=== PATIENT | male | born 1945 | race Caucasian/White ===

== ENCOUNTER → 2016-10-07 | Outpatient (CLI) | payer MEDICARE | END | disposition home or self-care (01) | LOC: LABPAT 15:20 | PROVIDERS: ATTEND Surgery | DX: Z01.818 Encounter for other preprocedural examination (principal) | CPT/HCPCS: 84132; 86850; 86900; 86901 ==

== ENCOUNTER 2016-10-08 07:58 | Day surgery (SDC) | payer BC, MEDICARE ==
[2016-10-07 08:28] VITALS: BMI 30.7
[~2016-10-08 07:58] MED LIST: HEPARIN SODIUM,PORCINE 5,000 UNIT/ML 1 ML VIAL SQ ONE; LACTATED RINGERS 1,000 ML IV SCH; LIDOCAINE 1% 20 ML VIAL (10MG/ML) FOR IV START INTRADERMA PRN; ONDANSETRON 4 MG/2 ML VIAL IVP ONE; ceFAZolin 2 GM in SODIUM CHLORIDE 0.9% 100 ML IVPB ONE
[2016-10-08] MEDS ORDERED: HYDROmorphone (PF) 1 MG/ML ONE (10:01)
[2016-10-08] MEDS ORDERED: ROCURONIUM BROMIDE 10 MG/ML 10 ML VIAL IV ONE (10:01)
[2016-10-08] MEDS ORDERED: fentaNYL (PF) 50 MCG/ML 2 ML AMP ONE (10:01)
[2016-10-08] MEDS ORDERED: DEXAMETHASONE SOD PHOS (MDV) 100 MG/10 ML VIAL ONE (10:01)
[2016-10-08] MEDS ORDERED: PROPOFOL 10 MG/ML 20 ML VIAL IV ONE (10:01)
[2016-10-08] MEDS ORDERED: GLYCOPYRROLATE 0.2 MG/ML 2 ML VIAL ONE (10:01)
[2016-10-08] MEDS ORDERED: NEOSTIGMINE 1 MG/ML 10 ML VIAL ONE (10:01)
[2016-10-08] MEDS ORDERED: SUCCINYLCHOLINE CHLORIDE 100 MG/5 ML SYR IV ONE (10:01)
[2016-10-08] MEDS ORDERED: MIDAZOLAM 2 MG/2 ML VIAL ONE (10:01)
[2016-10-08] MEDS ORDERED: LACTATED RINGERS 1,000 ML IV ONE (10:35)
[2016-10-08] MEDS ORDERED: BUPIVACAIN-EPI 0.25%-1:200,000 30 ML VIAL SQ ONE (10:44)
--- NOTE | 2016-10-08 12:23 | P.OP ---
Date of Procedure: 10/08/16 Preoperative Diagnosis: Incisional ventral hernia H/O prostate cancer s/p robotic prostatectomy Postoperative Diagnosis: Same Procedure(s) Performed: Robotic assist lap ventral incisional hernia repair with mesh possible open Implants: BARD Ventralight ST 11.4 cm circular mesh Anesthesia: DEEPTIA Surgeon: Radha Doran Estimated Blood Loss (ml): 10 IV fluids (ml): 1,400 Pathology: none sent Condition: other (ASA 3) Disposition: PACU Indications for Procedure: 70 years old male presents with an incisional hernia at prior surgical site. He status post robotic prostatectomy for prostate cancer 3 years ago. Informed consent obtained and patient elected to undergo robotic-assisted laparoscopic ventral hernia repair with mesh possible open. Patient had some discomfort in the left and right lower quadrants. However on clinical examination and laparoscopic exam no inguinal hernias noted Operative Findings: Vietnamese cheeselike defects along the prior incision site in the midline Description of Procedure: The patient was brought to the operating room and placed in supine position. General anesthesia with endotracheal intubation was performed as per anesthesia team. The right arm was tucked against the body and a footboard was applied. Chlorhexidine was used to prep the skin followed by application of sterile drapes and Ioban dressing. A timeout was performed to verify correct patient and correct procedure. Patient was confirmed to receive perioperative IV antibiotics , bilateral SCDs and 5000 units of subcutaneous heparin for VTE prophylaxis. A 5 mm skin incision was made along the left midaxillary line and a Veress needle was inserted to establish the pneumoperitoneum to a pressure of 15 mm of Hg. Using a 5 mm 30 laparoscope the peritoneal cavity was entered using the Optiview technique. Additional 12 mm trocar was placed in the mid axillary line in the left mid abdomen and robotic 8 mm trocar in the left lower abdomen. The 5 mm trocar was upsized to 8 mm robotic trocar. The abdominal cavity was inspected. No inguinal hernias. The [employer] Devon robot was then docked. The 30 robotic camera was used. A robotic prograsp and monopolar scissors were inserted through 8 mm robotic trocars The hernia defect contained preperitoneal fat and omentum which were reduced using gentle traction and countertraction method. The falciform ligament was divided using monopolar scissors close to the anterior abdominal wall to create a landing zone for the mesh. There were multiple hernia defects ( sammarinese chese type defect ) . The hernia defect was closed primarily with running sutures using O- V lock by taking 1 cm bite on the fascia on either side of the defect. A 11.[address] mesh was tagged in the center using a prolene stitich and was rolled and introduced to the abdominal cavity via the 12 mm trocar. A Delroy Shravan device was inserted through the middle of the hernia defect and the stay suture on the mesh was grasped to elevate the mesh against the anterior abdominal wall. The mesh was circumferentially sutured to the peritoneum of the anterior abdominal wall using 2-0 V lock without any folds or kinks. The robot was then undocked. Laparoscopic 30 degrees camera was reinserted. All trocar sites were examined. No evidence of bleeding. The 12 mm trocar site was closed using two transfascial sutures of 0 Vicryl which were placed using a Delroy Shravan device. All needles removed. The pneumoperitoneum was evacuated and all the skin incisions were closed using 4-0 Monocryl followed by Dermabond skin glue. Telfa and Tegaderm dressings were applied. The sponge, instrument and needle count were correct x2. Abdominal binder was applied. The patient was extubated and taken to post anesthesia care unit in stable condition.
[2016-10-08 12:29] VITALS: TEMP 97.4
[2016-10-08] MEDS: HYDROmorphone 1 MG/ML 1 ML SYRINGE IVP PRN ×2 (12:45→12:53)
[2016-10-08] MEDS: MEPERIDINE 50 MG/ML SYRINGE IVP ONE ×2 (13:06→13:19)
[2016-10-08] MEDS ORDERED: HYDROcodone/APAP 5-325MG 1 EACH TAB PO ONE (13:47)
[2016-10-08 14:12] VITALS: RESP 18
[2016-10-08 14:59] VITALS: BP 132/77; PULSE 65
== END 2016-10-08 16:12 | disposition home or self-care (01) ==
LOC: OR 07:58
PROVIDERS: ATTEND Surgery
DX: K43.2 Incisional hernia without obstruction or gangrene (principal); Z85.46 Personal history of malignant neoplasm of prostate; Z90.79 Acquired absence of other genital organ(s); I10 Essential (primary) hypertension; E78.5 Hyperlipidemia, unspecified; J45.909 Unspecified asthma, uncomplicated; G47.33 Obstructive sleep apnea (adult) (pediatric); Z88.8 Allergy status to other drugs, medicaments and biological substances; Z79.82 Long term (current) use of aspirin; Z79.899 Other long term (current) drug therapy
CPT/HCPCS: 49654; C1781; J2250; J1644; J2710; J2175; J0690; J2405; J3010; J1170; J1100; J0330; J2704; 86850; 86900; 86901

== ENCOUNTER → 2017-09-08 | Outpatient (CLI) | payer MEDICARE, BC ==
--- NOTE | 2017-09-08 18:00 | CONS ---
CONSULTATION DATE OF SERVICE: 09/08/2018 71-year-old gentleman who has been re-evaluated in [facility] for obstructive sleep apnea-hypopnea syndrome. HISTORY OF PRESENT ILLNESS/SLEEP WAKE EVALUATION: Patient has a history of obstructive sleep apnea-hypopnea syndrome for about 8 years. Last titration done in 2014. Since that time, patient is on treatment with BiPAP with a pressure of 14/10 cm of water. The patient is using his BiPAP equipment every night but several months ago his BiPAP equipment stopped working and he was not able to use it since that time. SLEEP SCHEDULE: His usual sleep schedule from around 9 to 11 pm to 7 am. Without BiPAP. He has loud snoring, multiple awakenings from sleep and sleepiness during the day. [place] Sleepiness Scale today significantly increased to 21. PAST MEDICAL HISTORY: Positive for depression, hyperlipidemia, off the prostate CA, hay fever and knee problems. PAST SURGICAL HISTORY: Status post bilateral knee surgery, prostatectomy, umbilical hernia repair last year. MEDICATIONS: Singulair, hydrochlorothiazide, bupropion, Lipitor, aspirin. SOCIAL HISTORY: Positive for smoking in the past, quit 40 years ago. Alcohol consumption occasional. FAMILY HISTORY: Positive for significant heart problems. REVIEW OF SYSTEMS: Multiple awakenings from sleep with snoring, sleepiness during the day. PHYSICAL EXAM: A 71-year-old gentleman probably looks younger than his age without distress. BP 149/73, HR 74, RR 16, height 5 feet 10 inches, weight 226, BMI 32.4, temperature 98.0, oxygen saturation room air 96%. Oropharynx low position of soft palate. Abdomen slightly obese. Neck Supple, no JVD. Thyroid is not palpable. LUNGS Clear to percussion and to auscultation. Good air exchange. No wheezing or rhonchi. HEART S1, S2 regular. No murmurs, gallops, or rubs. ABDOMEN: Obese. Soft and nontender. Bowel sounds are present. No organomegaly appreciated. EXTREMITIES No clubbing or cyanosis. SCIENCE CENTER DISPLAY BUILDER Awake, alert, and oriented X3. Cranial nerves 2 to 7 intact. There is no fasciculation or atrophy. noted. No focal deficits observed. IMPRESSION: 1. Snoring, multiple awakenings from sleep, low position of soft palate, sleepiness. [place] Sleepiness Scale significantly is 21. History of obstructive sleep apnea- hypopnea syndrome for many years. Obstructive sleep apnea-hypopnea syndrome. The patient slept well on BiPAP with a pressure of 14/10. Presently has problem because his BiPAP unit does not work properly. 2. Hypertension. 3. Depression. 4. Hyperlipidemia. 5. Asthma. 6. History of prostate carcinoma status post surgical treatment. 7. Hayfever. 8. Status post bilateral knee surgery for meniscus problems. 9. Status post umbilical hernia treatment last year. 10.Status post nasal surgery. PLAN: 1. The patient should continue to use BiPAP equipment every night for the whole night. I reviewed results of previous sleep study and recommended BiPAP pressure of 14-10 cm of water. Prescription for all necessary BiPAP supplies, prescription to replace BiPAP unit. 2. Patient should use BiPAP equipment every night for the whole night. 3. Losing weight. 4. Sleep hygiene with regular time in bed for at least 8 hours. 5. No driving if feeling sleepiness. Thank you very much for allowing me to participate in the management of your patient. Sincerely, Bill Knight MD, PhD, FAASM Diplomat of [place] [employer] [place] [employer] Ink Blender of [facility] [place] MMODL / IJN: [id number] /
== END | disposition home or self-care (01) ==
LOC: SLEEP 14:58
PROVIDERS: ATTEND Internal Medicine
DX: G47.33 Obstructive sleep apnea (adult) (pediatric) (principal); M27.8 Other specified diseases of jaws; I10 Essential (primary) hypertension; F32.9 Major depressive disorder, single episode, unspecified; E78.5 Hyperlipidemia, unspecified; J45.909 Unspecified asthma, uncomplicated; Z85.46 Personal history of malignant neoplasm of prostate; Z98.890 Other specified postprocedural states; Z99.89 Dependence on other enabling machines and devices; Z79.82 Long term (current) use of aspirin; Z79.899 Other long term (current) drug therapy; Z87.891 Personal history of nicotine dependence

== ENCOUNTER → 2018-01-11 | Outpatient (CLI) | payer MEDICARE, BC ==
--- NOTE | 2018-01-11 16:02 | PN ---
PROGRESS NOTE DATE OF SERVICE: 01/11/2018 This patient is a 72-year-old gentleman who has been followed in the sleep center for treatment of obstructive sleep apnea-hypopnea syndrome. Recently the patient had a polysomnogram and CPAP titration. We discussed results of these sleep studies with the patient in detail. Diagnostic polysomnogram showed obstructive sleep apnea with apnea- hypopnea index 24.6, which was corrected with treatment on BiPAP. The patient received his new BiPAP unit, and today is his first visit with this after he started to use it. He is able to use it every night without any significant problems. I checked his BiPAP unit. BiPAP pressure is 14/10 cm of water, usage 29/30 nights for more than 4 hours. Average usage is 7.2 hours. There is a slightly high leak at 43 L/minute, but apnea-hypopnea index is 4, which is in normal range. [place] Sleepiness Scale today is 11. MEDICATIONS: 1. Singulair. 2. Hydrochlorothiazide. 3. Bupropion. 4. Lipitor. 5. Aspirin. PHYSICAL EXAMINATION: GENERAL A pleasant gentleman in no distress. VITAL SIGNS: BP 134/79, HR 64, RR 18, weight 230.3, temperature 97.6. HEENT: PERRLA, EOMI. Evaluation of oropharynx showed tongue protrudes midline; low position of soft palate. NECK: Supple. No JVD. Thyroid is not palpable. LUNGS: Clear to percussion and to auscultation. Good air exchange. No wheezing or rhonchi. HEART: S1, S2 regular. No murmurs, gallops or rubs. ABDOMEN: Slightly obese. EXTREMITIES : No clubbing or cyanosis. EDDY CURRENT INSPECTOR: Awake, alert, and oriented X3. Cranial nerves 2 to 7 intact. There is no fasciculation or atrophy. noted. No focal deficits observed. IMPRESSION: 1. Obstructive sleep apnea-hypopnea syndrome. The patient demonstrated practically 100% compliance with treatment, benefitting from treatment. 2. Hypertension. 3. History of depression. 4. Hyperlipidemia. 5. History of asthma. 6. Status post surgical treatment of prostate cancer. 7. History of hayfever. 8. Status post nasal surgery. 9. Status post bilateral knee surgery for meniscus problems. 10.Status post umbilical hernia about one year ago. PLAN: 1. Patient will continue to use BiPAP equipment every night for the whole night. 2. Losing weight. 3. Sleep hygiene with regular time in bed for at least 8 hours. 4. No driving if feeling any sleepiness. 5. We will maintain prescriptions for all necessary CPAP supplies, including mask, tube, filters. Thank you very much for allowing me to participate in the management of your patient. Follow-up visit in about 10 months, earlier if patient has any problems. Sincerely, Bill Knight MD, PhD, FAASM Diplomat of [place] [employer] [place] [employer] Search Marketing Specialist of [facility] [place] MMODL / IJN: [id number] /
== END | disposition home or self-care (01) ==
LOC: SLEEP 14:35
PROVIDERS: ATTEND Internal Medicine
DX: G47.33 Obstructive sleep apnea (adult) (pediatric) (principal); I10 Essential (primary) hypertension; F32.9 Major depressive disorder, single episode, unspecified; E78.5 Hyperlipidemia, unspecified; J45.909 Unspecified asthma, uncomplicated; Z98.890 Other specified postprocedural states; Z79.899 Other long term (current) drug therapy; Z79.82 Long term (current) use of aspirin

== ENCOUNTER → 2018-01-19 | Outpatient (CLI) | payer MEDICARE, BC ==
--- NOTE | 2018-01-19 17:50 | XR ---
EXAMINATION TYPE: XR chest 2V DATE OF EXAM: 01/19/2018 COMPARISON: 03/12/2013 HISTORY: 72 year-old male shortness of breath for 2 months, COPD TECHNIQUE: Frontal and lateral views FINDINGS: Heart normal size. Aorta within normal limits. Mild interstitial prominence. Strandy atelectasis left base. No consolidation or pleural effusion. IMPRESSION: Chronic changes, possible bronchitis/asthma. Strandy left basilar atelectasis. No acute process other carranza seen.
== END ==
LOC: RADXRMAIN 14:09
PROVIDERS: ATTEND Family Medicine
DX: J98.11 Atelectasis (principal)
CPT/HCPCS: 71046

== ENCOUNTER → 2018-01-23 | Outpatient (CLI) | payer MEDICARE ==
--- NOTE | 2018-01-23 18:39 | ECHOF ---
Referral Reason:K80.12 Calculus of gallbladder with acute and engagement liaison MEASUREMENTS -------- HEIGHT: 177.8 cm WEIGHT: 102.1 kg BP: 137/65 RVIDd: 2.9 cm (< 3.3) IVSd: 1.2 cm (0.6 - 1.1) LVIDd: 5.2 cm (3.9 - 5.3) LVPWd: 1.2 cm (0.6 - 1.1) IVSs: 1.7 cm LVIDs: 3.3 cm LVPWs: 1.5 cm LA Diam: 3.9 cm (2.7 - 3.8) LAESV Index (A-L): 24.79 ml/m Ao Diam: 3.2 cm (2.0 - 3.7) AV Cusp: 2.0 cm (1.5 - 2.6) EPSS: 0.6 cm MV E Rudi: 0.74 m/s MV DecT: 224 ms MV A Rudi: 0.89 m/s MV E/A Ratio: 0.83 RAP: 5.00 mmHg RVSP: 21.60 mmHg MV EF SLOPE: 78.84 mm/s (70 - 150) MV EXCURSION: 1.38 cm (> 18.000) FINDINGS -------- Sinus rhythm. This was a technically adequate study. The left ventricular size is normal. There is borderline concentric left ventricular hypertrophy. Overall left ventricular systolic function is normal with, an EF between 55 - 60 %. The right ventricle is normal in size. Normal LA size by volume 22+/-6 ml/m2. The right atrium is normal in size. The aortic valve is trileaflet and appears structurally normal. The mitral valve is normal. Mild mitral regurgitation is present. Mild tricuspid regurgitation present. Right ventricular systolic pressure is normal at < 35 mmHg. Trace/mild (physiologic) pulmonic regurgitation. The aortic root size is normal. Normal inferior vena cava with normal inspiratory collapse consistent with estimated right atrial pre ssure of 5 mmHg. There is no pericardial effusion. CONCLUSIONS -------- 1. Sinus rhythm. 2. This was a technically adequate study. 3. The left ventricular size is normal. 4. There is borderline concentric left ventricular hypertrophy. 5. Overall left ventricular systolic function is normal with, an EF between 55 - 60 %. 6. Normal LA size by volume 22+/-6 ml/m2. 7. The aortic valve is trileaflet and appears structurally normal. 8. Mild mitral regurgitation is present. 9. Mild tricuspid regurgitation present. 10. Right ventricular systolic pressure is normal at < 35 mmHg. 11. Trace/mild (physiologic) pulmonic regurgitation. 12. The aortic root size is normal. 13. Normal inferior vena cava with normal inspiratory collapse consistent with estimated right atrial pressure of 5 mmHg. 14. There is no pericardial effusion. CLINICAL RESEARCH MONITOR: REYES Rodriguez
== END | disposition home or self-care (01) ==
LOC: RADECHMAIN 12:56
PROVIDERS: ATTEND Family Medicine
DX: I08.1 Rheumatic disorders of both mitral and tricuspid valves (principal)
CPT/HCPCS: 93306

== ENCOUNTER → 2018-02-06 | Outpatient (CLI) | payer MEDICARE, BC ==
--- NOTE | 2018-02-06 18:48 | P.STRESS ---
- Stress Test Note Stress Test Results/Findings: Exam Performed: stress echo exercise Exam Date: 02/06/18 Reason for Exam: SOB Height: 5 ft 10 in Weight: 102.058 kg Protocol: 63 Stage: 119/50 Duration of Exercise: 6:30 Resting Heart Rate: 63 Resting Blood Pressure: 119/50 Maximum Achieved Heart Rate: 133 Maximum Achieved Blood Pressure: 210/68 85% PMHR: 127 100% PMHR: 149 METS: 7.9 Technologist Comment: Stress Test Results/Findings: Baseline heart rate 63 beats a minute, Baseline blood pressure 119/50 mmHg the center ECG shows sinus rhythm normal VT and an incomplete right bundle branch block pattern normal ST segments Patient excisable Rex protocol for 6 minutes 30 seconds regimen will be currently 133 beats a minute he was extremely short of breath during exercise. He blood pressure 210/68 mmHg No ECG is for ischemia no arrhythmias Recent 2-D echo images showed normal LV systolic function rate at peak exercise there was excellent augmentation of oral LV contractility without development of any wall motion normalities At recovery regional global LV systolic function within normal Impression ALLERGY excess capacity with significant shortness of breath with exertion/ exercise No ECG or echocardiographic evidence for ischemia at this workload level
--- NOTE | 2018-02-08 09:57 | ECHOS ---
Stress Test Results/Findings: Exam Performed: stress echo exercise Exam Date: 02/06/18 Reason for Exam: SOB Height: 5 ft 10 in Weight: 102.058 kg Protocol: 63 Stage: 119/50 Duration of Exercise: 6:30 Resting Heart Rate: 63 Resting Blood Pressure: 119/50 Maximum Achieved Heart Rate: 133 Maximum Achieved Blood Pressure: 210/68 85% PMHR: 127 100% PMHR: 149 METS: 7.9 Technologist Comment: Stress Test Results/Findings: Baseline heart rate 63 beats a minute, Baseline blood pressure 119/50 mmHg the center ECG shows sinus rhythm normal UT and an incomplete right bundle branch block pattern normal ST segments Patient excisable Rex protocol for 6 minutes 30 seconds regimen will be currently 133 beats a minute he was extremely short of breath during exercise. He blood pressure 210/68 mmHg No ECG is for ischemia no arrhythmias Recent 2-D echo images showed normal LV systolic function rate at peak exercise there was excellent augmentation of oral LV contractility without development of any wall motion normalities At recovery regional global LV systolic function within normal Impression ALLERGY excess capacity with significant shortness of breath with exertion/ exercise No ECG or echocardiographic evidence for ischemia at this workload level MTDD
== END | disposition home or self-care (01) ==
LOC: RADNMMAIN 08:51
PROVIDERS: ATTEND Family Medicine
DX: R06.02 Shortness of breath (principal); I10 Essential (primary) hypertension
CPT/HCPCS: 93351

== ENCOUNTER 2019-01-24 11:35 | Inpatient (IN) | payer BC, MEDICARE ==
[2019-01-24] MEDS ORDERED: SODIUM CHLORIDE 0.9% 500 ML 500 ML IV STA (12:03)
[2019-01-24] MEDS ORDERED: ASPIRIN 81 MG PO STA (12:03)
[2019-01-24] MEDS ORDERED: NITROGLYCERIN OINT 1 INCH/GM PACKET TOPICAL STA (12:03)
--- NOTE | 2019-01-24 12:14 | ED ---
General Adult HPI - General Chief complaint: Syncope Stated complaint: Abnormal EKG, Fall Time Seen by Provider: 01/24/19 11:40 Source: patient, RN notes reviewed Mode of arrival: ambulatory Limitations: no limitations - History of Present Illness Initial comments: This is a 73-year-old male with no significant past medical history. Patient states he's been moving for the last couple of weeks and has been experiencing some right upper arm pain. Patient states she believed it was muscular in nature because it was constant and hurt to palpate in her to use. Patient states yesterday however he was taking her potassium exerting himself a little and he started becoming extremely short of breath had chest pain and right jaw pain. Patient states those symptoms lasted about half an hour. Patient states currently he still having some jaw pain and is experiencing some chest pain. Patient went to his primary medical care doctor's office today to Dr. Dr. Lebron about his symptoms and in the office while sitting on the bed he passed out and fell to the floor. Patient states he has a little tenderness over the left clavicle. Patient did not hit his head he denies any neck pain patient denies any headache. Patient denies numbness weakness. Patient denies any palpitations. Patient denies any history of similar. Patient states in the past he has had clean catheterizations. - Related Data Home Medications Medication Instructions Recorded Confirmed Atorvastatin Calcium [Lipitor] 20 mg PO DAILY 03/17/16 01/24/19 Hydrochlorothiazide 25 mg PO DAILY 03/17/16 01/24/19 Montelukast Sodium [Singulair] 10 mg PO DAILY 03/17/16 01/24/19 buPROPion HCL [Bupropion HCl Sr] 300 mg PO DAILY 03/17/16 01/24/19 Allergies Allergy/AdvReac Type Severity Reaction Status Date / Time fluticasone AdvReac Rash/Hives Verified 01/24/19 11:55 [From Advair Diskus] salmeterol AdvReac Rash/Hives Verified 01/24/19 11:55 [From Advair Diskus] Review of Systems ROS Statement: Those systems with pertinent positive or pertinent negative responses have been documented in the HPI. ROS Other: All systems not noted in ROS Statement are negative. Past Medical History Past Medical History: Asthma, Cancer, Hyperlipidemia, Hypertension, Skin Disorder, Sleep Apnea/CPAP/BIPAP Additional Past Medical History / Comment(s): PROSTATE CA, hx skin cancer, History of Any Multi-Drug Resistant Organisms: None Reported Past Surgical History: Heart Catheterization, Orthopedic Surgery, Prostate Surgery Additional Past Surgical History / Comment(s): RT TENNIS ELBOW SX, sinus surgery , isidra knee arthroscopy, Past Anesthesia/Blood Transfusion Reactions: Postoperative Nausea & Vomiting (PONV) Past Psychological History: Depression Smoking Status: Former smoker Past Alcohol Use History: Occasional Past Drug Use History: None Reported - Past Family History Brother(s) Family Medical History: Cancer Mother Family Medical History: Cancer General Exam - General Exam Comments Initial Comments: GENERAL: Patient is well-developed and well-nourished. Patient is nontoxic and well- hydrated and is in mild distress. ENT: Neck is soft and supple. No significant lymphadenopathy is noted. Oropharynx is clear. Moist mucous membranes. Neck has full range of motion without eliciting any pain. EYES: The sclera were anicteric and conjunctiva were pink and moist. Extraocular movements were intact and pupils were equal round and reactive to light. Eyelids were unremarkable. PULMONARY: Unlabored respirations. Good breath sounds bilaterally. No audible rales rhonchi or wheezing was noted. CARDIOVASCULAR: There is a regular rate and rhythm without any murmurs gallops or rubs. ABDOMEN: Soft and nontender with normal bowel sounds. SKIN: Skin is clear with no lesions or rashes and otherwise unremarkable. NEUROLOGIC: Patient is alert and oriented x3. Cranial nerves II through XII are grossly intact. Motor and sensory are also intact. Normal speech, volume and content. Symmetrical smile. MUSCULOSKELETAL: Normal extremities with adequate strength and full range of motion. No lower extremity swelling or edema. No calf tenderness. Patient LYMPHATICS: No significant lymphadenopathy is noted PSYCHIATRIC: Normal psychiatric evaluation. Limitations: no limitations Course Vital Signs 01/24/19 11:39 Temperature 97.5 F L Pulse Rate 53 L Respiratory 18 Rate Blood Pressure 147/87 O2 Sat by Pulse 98 Oximetry Medical Decision Making - Medical Decision Making EKG shows sinus bradycardia 57 bpm MO interval 260 QRS is 90 QT interval 420 QTC is 408. Patient's EKG shows no ST segment elevation or depression or T wave abnormalities are noted. Patient's chest x-ray shows no acute abnormality. I started the patient on heparin because of his unstable angina picture. I spoke with Dr. Bernardino Lebron agreed to admit the patient admitted the patient remaining orders I continued heparin and aspirin and Nitropaste on the floor. Patient's chest pain continues a repeat EKG. EKG shows sinus bradycardia 56 bpm MO interval 180 QRS is 98 QT interval is 4:30 QTC is 414 per patient's EKG shows no ST segment elevation or depression or T wave abnormalities are noted. - Lab Data Result diagrams: 01/24/19 12:15 01/24/19 12:15 Lab Results 01/24/19 01/24/19 01/24/19 Range/Units 12:15 12:15 12:15 WBC 5.4 (3.8-10.6) k/uL RBC 4.71 (4.30-5.90) m/uL Hgb 14.7 (13.0-17.5) gm/dL Hct 45.4 (39.0-53.0) % MCV 96.3 (80.0-100.0) fL MCH 31.3 (25.0-35.0) pg MCHC 32.5 (31.0-37.0) g/dL RDW 12.2 (11.5-15.5) % Plt Count 262 (150-450) k/uL Neutrophils % 64 % Lymphocytes % 21 % Monocytes % 6 % Eosinophils % 5 % Basophils % 1 % Neutrophils # 3.5 (1.3-7.7) k/uL Lymphocytes # 1.1 (1.0-4.8) k/uL Monocytes # 0.3 (0-1.0) k/uL Eosinophils # 0.3 (0-0.7) k/uL Basophils # 0.1 (0-0.2) k/uL PT 9.6 (9.0-12.0) sec INR 0.9 (<1.2) APTT 22.0 (22.0-30.0) sec D-Dimer 0.43 (<0.60) mg/L FEU Sodium 140 (137-145) mmol/L Potassium 4.2 (3.5-5.1) mmol/L Chloride 105 (98-107) mmol/L Carbon Dioxide 24 (22-30) mmol/L Anion Gap 11 mmol/L BUN 17 (9-20) mg/dL Creatinine 1.10 (0.66-1.25) mg/dL Est GFR (CKD-EPI)AfAm 77 (>60 ml/min/1.73 sqM) Est GFR (CKD-EPI)NonAf 67 (>60 ml/min/1.73 sqM) Glucose 92 (74-99) mg/dL Calcium 9.7 (8.4-10.2) mg/dL Magnesium 2.2 (1.6-2.3) mg/dL Total Bilirubin 0.6 (0.2-1.3) mg/dL AST 23 (17-59) U/L ALT 24 (21-72) U/L Alkaline Phosphatase 73 (38-126) U/L Troponin I (0.000-0.034) ng/mL NT-Pro-B Natriuret Pep pg/mL Total Protein 6.8 (6.3-8.2) g/dL Albumin 4.2 (3.5-5.0) g/dL 01/24/19 01/24/19 Range/Units 12:15 12:15 WBC (3.8-10.6) k/uL RBC (4.30-5.90) m/uL Hgb (13.0-17.5) gm/dL Hct (39.0-53.0) % MCV (80.0-100.0) fL MCH (25.0-35.0) pg MCHC (31.0-37.0) g/dL RDW (11.5-15.5) % Plt Count (150-450) k/uL Neutrophils % % Lymphocytes % % Monocytes % % Eosinophils % % Basophils % % Neutrophils # (1.3-7.7) k/uL Lymphocytes # (1.0-4.8) k/uL Monocytes # (0-1.0) k/uL Eosinophils # (0-0.7) k/uL Basophils # (0-0.2) k/uL PT (9.0-12.0) sec INR (<1.2) APTT (22.0-30.0) sec D-Dimer (<0.60) mg/L FEU Sodium (137-145) mmol/L Potassium (3.5-5.1) mmol/L Chloride (98-107) mmol/L Carbon Dioxide (22-30) mmol/L Anion Gap mmol/L BUN (9-20) mg/dL Creatinine (0.66-1.25) mg/dL Est GFR (CKD-EPI)AfAm (>60 ml/min/1.73 sqM) Est GFR (CKD-EPI)NonAf (>60 ml/min/1.73 sqM) Glucose (74-99) mg/dL Calcium (8.4-10.2) mg/dL Magnesium (1.6-2.3) mg/dL Total Bilirubin (0.2-1.3) mg/dL AST (17-59) U/L ALT (21-72) U/L Alkaline Phosphatase (38-126) U/L Troponin I 0.020 (0.000-0.034) ng/mL NT-Pro-B Natriuret Pep 121 pg/mL Total Protein (6.3-8.2) g/dL Albumin (3.5-5.0) g/dL Critical Care Time Critical Care Time: Yes Total Critical Care Time: 35 Disposition Clinical Impression: Unstable angina Disposition: ADMITTED IP TO THIS HOSP Referrals: Troy Lebron MD [Primary Care Provider] - 1-2 days Time of Disposition: 13:25
[2019-01-24 12:33] LABS: Basophils # (A) 0.1 k/uL (0-0.2); Basophils % (A) 1 %; Eosinophils # (A) 0.3 k/uL (0-0.7); Eosinophils % (A) 5 %; HCT 45.4 % (39.0-53.0); HGB 14.7 gm/dL (13.0-17.5); Lymphocytes # (A) 1.1 k/uL (1.0-4.8); Lymphocytes % (A) 21 %; MCH 31.3 pg (25.0-35.0); MCHC 32.5 g/dL (31.0-37.0); MCV 96.3 fL (80.0-100.0); Mean Platelet Volume 7.1; Monocytes # (A) 0.3 k/uL (0-1.0); Monocytes % (A) 6 %; Neutrophils # (A) 3.5 k/uL (1.3-7.7); Neutrophils % (A) 64 %; Platelet Count 262 k/uL (150-450); RBC 4.71 m/uL (4.30-5.90); RDW 12.2 % (11.5-15.5); WBC 5.4 k/uL (3.8-10.6)
--- NOTE | 2019-01-24 12:39 | XR ---
EXAMINATION TYPE: XR chest 2V DATE OF EXAM: 01/24/2019 COMPARISON: 01/19/2018 HISTORY: Shortness of breath TECHNIQUE: Frontal and lateral views of the chest are obtained. FINDINGS: Scattered senescent parenchymal changes noted. Hyperinflation compatible with COPD. No evidence for infiltrate. No evidence for atelectasis. Heart size is stable. Mediastinal structures are stable and grossly unremarkable. No evidence for hilar prominence. Degenerative changes dorsal spine. IMPRESSION: 1. No evidence for acute pulmonary disease.
[2019-01-24 12:45] LABS: Albumin 4.2 g/dL (3.5-5.0); Calcium 9.7 mg/dL (8.4-10.2); Magnesium 2.2 mg/dL (1.6-2.3); Potassium 4.2 mmol/L (3.5-5.1); Total Bilirubin 0.6 mg/dL (0.2-1.3); Total Protein 6.8 g/dL (6.3-8.2)
[2019-01-24 13:17] LABS: D-Dimer 0.43 mg/L FEU (<0.60); INR 0.9 (<1.2); Prothrombin Time 9.6 sec (9.0-12.0)
[2019-01-24] MEDS ORDERED: HEPARIN SODIUM,PORCINE 5,000 UNIT/ML 1 ML VIAL IV ONE ×2 (13:22→22:15)
[2019-01-24] MEDS ORDERED: NITROGLYCERIN SL TABS 0.4 MG TAB SUBLINGUAL PRN (13:26)
[2019-01-24] MEDS ORDERED: HEPARIN SOD,PORK IN 0.45% NACL 25,000 UNIT in 0.45% NACL 1 250ML.BAG IV SCH (13:30)
[2019-01-24] MEDS ORDERED: SODIUM CHLORIDE 0.9% 500 ML 500 ML IV SCH (13:45)
[2019-01-24] MEDS ORDERED: INFLUENZA VACCINE (6 MOS+) 60 MCG/0.5 ML SYRINGE IM ONE (14:43)
[2019-01-24] MEDS: NITROGLYCERIN OINT 1 INCH/GM PACKET TOPICAL SCH (21:01)
[2019-01-25] MEDS: NITROGLYCERIN OINT 1 INCH/GM PACKET TOPICAL SCH ×4 (01:23→18:33)
[2019-01-25 06:37] LABS: Cholesterol 153 mg/dL (<200); HDL Cholesterol 47 mg/dL (40-60); LDL Cholesterol,Calculated 92 mg/dL (0-99); Triglycerides 71 mg/dL (<150)
[2019-01-25] MEDS ORDERED: ALPRAZolam 0.5 MG TAB PO PRN (08:13)
[2019-01-25] MEDS ORDERED: ALPRAZolam 0.25 MG TAB PO PRN (08:13)
[2019-01-25] MEDS ORDERED: SODIUM CHLORIDE 0.9% 1,000 ML in EMPTY BAG 1 BAG IV ONE (08:13)
[2019-01-25] MEDS ORDERED: ATORVASTATIN 20 MG TAB PO SCH (09:00)
[2019-01-25] MEDS: HYDROCHLOROTHIAZIDE 25 MG TAB PO SCH (09:09)
[2019-01-25] MEDS: buPROPion SR 150 MG TABLET.ER PO SCH (09:09)
[2019-01-25] MEDS: MONTELUKAST 10 MG TAB PO SCH (09:09)
[2019-01-25] MEDS: ASPIRIN 325 MG TAB PO SCH (09:10)
--- NOTE | 2019-01-25 10:53 | P.CRDCN ---
History of Present Illness History of present illness: This is a pleasant 73-year-old male past medical history significant for dyslipidemia, hypertension and asthma. He denies prior history of coronary artery disease. He states he underwent a cardiac catheterization in the 80s that was unremarkable and showed no significant coronary artery disease. We have been asked to see him in consultation secondary to chest discomfort. He states for approximately the previous 2 weeks he has noticed an achy sensation in his left shoulder that sometimes radiated to the upper left arm. These symptoms were not necessarily exacerbated by activity but didn't intensify with activity. He states he is in the process of moving and he has been doing a lot of lifting and associated his discomfort to that. However a couple of nights ago he was taking his garbage out to the curb when he became acutely short of breath. He states this is abnormal for him to be short of breath and he felt as though he had just climbed 3 flights of stairs. He then started noticing the following day some discomfort in the left precordial region that radiated up into the jaw on both sides. The chest discomfort was exacerbated by activity or exertion prompting him to see his primary care physician for evaluation. His primary care physician took an EKG and gave him a sublingual nitroglycerin. They left the patient in the room and when he came back and he passed out. The patient does not recall these events he states he remembers taking the nitrog lycerin sitting on the bed next he knows he was on the floor. His seen and examined resting comfortably in bed in no acute distress. He denies active chest discomfort at this time. EKG on arrival reveals sinus bradycardia heart rate of 57, left axis deviation and nonspecific ST abnormalities. Chest x-ray is negative for an acute cardiopulmonary process. Laboratory data reviewed, CBC unremarkable, d-dimer 0.43, sodium 140, potassium 4.2, creatinine 1.01 with a GFR 67, magnesium 2.2, cardiac enzymes 0.020, 0.051 and 0.063, proBNP 121, LDL 92. Current daily cardiac medications include atorvastatin 20 mg daily and hydrochlorothiazide 25 mg daily. Most recent echocardiogram obtained January 2018 reveals preserved LV systolic function with ejection fraction 55-60%, mild MR and mild TR. Most recent stress test performed in January 2018 was negative for stress-induced ischemia. At the time of my exam: CONSTITUTIONAL: Denies fever. Denies chills. EYES: Denies blurred vision. Denies vision changes. Denies eye pain. EARS, NOSE, MOUTH & THROAT: Denies headache. Denies sore throat. Denies ear pain. CARDIOVASCULAR: Denies chest pain. Denies shortness of breath. Denies orthopnea. Denies PND. Denies palpitations. RESPIRATORY: Denies cough. GASTROINTESTINAL: Denies abdominal pain. Denies diarrhea. Denies constipation. Denies nausea. Denies vomiting. MUSCULOSKELETAL: Denies myalgias. INTEGUMENTARY: Denies pruitis. Denies rash. NEUROLOGIC: Denies numbness. Denies tingling. Denies weakness. PSYCHIATRIC: Denies anxiety. Denies depression. ENDOCRINE: Denies fatigue. Denies weight change. Denies polydipsia. Denies polyurina. GENITOURINARY: Denies burning, hematuria or urgency with micturation. HEMATOLOGIC: Denies history of anemia. Denies bleeding. Blood pressure 111/68 heart rate 58 afebrile maintaining oxygen saturation on room air GENERAL: This is a 73-year-old male in no apparent distress at the time of my examination. HEENT: Head is atraumatic, normocephalic. Pupils are equal, round. Sclerae anicteric. Conjunctivae are clear. Mucous membranes of the mouth are moist. Neck is supple. There is no jugular venous distention. No carotid bruit is heard. LUNGS: Clear to auscultation no wheezes, rales or rhonchi. No chest wall tenderness is noted on palpation or with deep breathing. HEART: Regular rate and rhythm without murmurs, rubs or gallops. S1 and S2 heard. ABDOMEN: Soft, nontender. Bowel sounds are heard. No organomegaly noted. EXTREMITIES: No evidence of peripheral edema and no calf tenderness noted. VASCULAR: Radial and dorsalis pedis pulses palpated, no evidence of clubbing. NEUROLOGIC: Patient is awake, alert and oriented x3. ASSESSMENT Non-ST elevated myocardial infarction Unstable angina Hypertension Dyslipidemia Former nicotine dependence, quit in 1974 PLAN Recommend proceeding with cardiac catheterization. I have discussed the risks, benefits and alternative therapies for the above-mentioned procedure and for both sedation/analgesia as well as necessary blood product administration, if indicated, as they pertain to this patient. The patient has indicated understanding and acceptance of the risks and procedures discussed. Questions have been answered appropriately and he is agreeable to move forward with the above stated procedure. Obtain 2-D echocardiogram and Doppler study to assess cardiac structure and function. Increase atorvastatin to 80 mg daily. Will hold on beta blockers at this time due to bradycardia. Further recommendations to follow based upon clinical course. Thank you kindly for this consultation. Nurse Practitioner note has been reviewed, I agree with a documented findings and plan of care. Patient was seen and examined. Past Medical History Past Medical History: Asthma, Cancer, Hyperlipidemia, Hypertension, Osteoarthritis (OA), Pneumonia, Skin Disorder, Sleep Apnea/CPAP/BIPAP, Syncope Additional Past Medical History / Comment(s): Prostate cancer with surgery, skin cancer with removals, KATJA with bipap, pneumonia as a 4 yr old, seasonal allergies, arthritis in bilateral knees and hands. History of Any Multi-Drug Resistant Organisms: None Reported Past Surgical History: Heart Catheterization, Hernia Repair, Orthopedic Surgery, Prostate Surgery Additional Past Surgical History / Comment(s): Robotic prostatectomy, R tennis elbow, bilateral knee arthroscopies, umbilical hernia repair, incisional hernia repair, skin cancer removals, colonoscopy, sinus surgery. Past Anesthesia/Blood Transfusion Reactions: Postoperative Nausea & Vomiting (PONV) Smoking Status: Former smoker - Past Family History Brother(s) Family Medical History: Cancer Additional Family Medical History / Comment(s): Nonhodgkins lymphoma Mother Family Medical History: Cancer Additional Family Medical History / Comment(s): Mother had breast cancer. Father Family Medical History: Vascular Disorder Additional Family Medical History / Comment(s): Father had vascular disease. He was a smoker. Medications and Allergies Home Medications Medication Instructions Recorded Confirmed Type Atorvastatin Calcium [Lipitor] 20 mg PO DAILY 03/17/16 01/24/19 History Hydrochlorothiazide 25 mg PO DAILY 03/17/16 01/24/19 History Montelukast Sodium [Singulair] 10 mg PO DAILY 03/17/16 01/24/19 History buPROPion HCL [Bupropion HCl Sr] 150 mg PO DAILY 03/17/16 01/24/19 History Allergies Allergy/AdvReac Type Severity Reaction Status Date / Time fluticasone AdvReac Rash/Hives Verified 01/24/19 11:55 [From Advair Diskus] salmeterol AdvReac Rash/Hives Verified 01/24/19 11:55 [From Advair Diskus] Physical Exam Vitals: Vital Signs Temp Pulse Pulse Pulse Pulse Pulse Resp 01/25/19 07:47 97.5 F L 50 L 18 01/25/19 04:00 97.5 F L 52 L 18 01/25/19 03:55 18 01/24/19 23:40 97.9 F 52 L 18 01/24/19 19:18 62 63 73 01/24/19 18:12 01/24/19 17:29 97.6 F 55 L 18 01/24/19 17:00 17 01/24/19 16:30 60 15 01/24/19 16:00 58 L 18 01/24/19 15:30 58 L 17 01/24/19 15:00 64 16 01/24/19 14:30 61 17 01/24/19 14:00 55 L 17 01/24/19 13:30 54 L 01/24/19 13:28 55 L 01/24/19 11:39 97.5 F L 53 L 18 BP BP BP BP BP Pulse Ox 01/25/19 07:47 111/68 98 01/25/19 04:00 119/73 96 01/25/19 03:55 01/24/19 23:40 117/68 97 01/24/19 19:18 140/69 154/81 135/70 96 01/24/19 18:12 97 01/24/19 17:29 137/77 97 01/24/19 17:00 117/73 96 01/24/19 16:30 126/75 97 01/24/19 16:00 126/77 97 01/24/19 15:30 133/77 98 01/24/19 15:00 140/102 98 01/24/19 14:30 138/79 97 01/24/19 14:00 141/87 96 01/24/19 13:30 144/89 96 01/24/19 13:28 141/83 96 01/24/19 11:39 147/87 98 Intake and Output 01/24/19 01/25/19 01/25/19 22:59 06:59 14:59 Intake Total 330.667 Balance 330.667 Intake: Intake, IV Titration 90.667 Amount Heparin Sod,Pork in 0.45% 90.667 NaCl 25,000 unit In 0.45 % NaCl 1 250ml.bag @ 10. 159 UNITS/KG/HR 10 mls/hr IV .Q24H [facility] Rx#: [id number] Oral 240 Other: Voiding Method Toilet Toilet Toilet # Voids 1 1 Results 01/24/19 12:15 01/24/19 12:15 Cardiac Enzymes 01/24/19 01/24/19 01/24/19 Range/Units 12:15 12:15 19:20 AST 23 (17-59) U/L Troponin I 0.020 0.051 H* (0.000-0.034) ng/mL 01/25/19 Range/Units 00:34 AST (17-59) U/L Troponin I 0.063 H* (0.000-0.034) ng/mL Coagulation 01/24/19 01/24/19 01/25/19 Range/Units 12:15 19:20 05:10 PT 9.6 (9.0-12.0) sec APTT 22.0 27.5 44.0 H (22.0-30.0) sec Lipids 01/25/19 Range/Units 05:10 Triglycerides 71 (<150) mg/dL Cholesterol 153 (<200) mg/dL HDL Cholesterol 47 (40-60) mg/dL CBC 01/24/19 Range/Units 12:15 WBC 5.4 (3.8-10.6) k/uL RBC 4.71 (4.30-5.90) m/uL Hgb 14.7 (13.0-17.5) gm/dL Hct 45.4 (39.0-53.0) % Plt Count 262 (150-450) k/uL Comprehensive Metabolic Panel 01/24/19 Range/Units 12:15 Sodium 140 (137-145) mmol/L Potassium 4.2 (3.5-5.1) mmol/L Chloride 105 (98-107) mmol/L Carbon Dioxide 24 (22-30) mmol/L BUN 17 (9-20) mg/dL Creatinine 1.10 (0.66-1.25) mg/dL Glucose 92 (74-99) mg/dL Calcium 9.7 (8.4-10.2) mg/dL AST 23 (17-59) U/L ALT 24 (21-72) U/L Alkaline Phosphatase 73 (38-126) U/L Total Protein 6.8 (6.3-8.2) g/dL Albumin 4.2 (3.5-5.0) g/dL Current Medications Generic Name Dose Route Start Last Admin Trade Name Freq PRN Reason Stop Dose Admin Alprazolam 0.25 mg 01/25/19 08:13 Xanax PO Q6HR PRN Mild Anxiety Alprazolam 0.5 mg 01/25/19 08:13 Xanax PO Q6HR PRN Moderate Anxiety Aspirin 325 mg 01/25/19 09:00 01/25/19 09:10 Aspirin PO 325 mg DAILY CHARAN Administration Atorvastatin Calcium 20 mg 01/25/19 09:00 01/25/19 09:09 Lipitor PO 20 mg DAILY CHARAN Administration Bupropion HCl 150 mg 01/25/19 09:00 01/25/19 09:09 Wellbutrin Sr PO 150 mg DAILY CHARAN Administration Hydrochlorothiazide 25 mg 01/25/19 09:00 01/25/19 09:09 Hydrodiuril PO 25 mg DAILY CHARAN Administration Heparin Sodium/Sodium Chloride 250 mls @ 10 mls/hr 01/24/19 13:30 01/24/19 22:50 25,000 unit/ Sodium Chloride IV 13.15 units/kg/hr .Q24H CHARAN 12.944 mls/hr Titration Protocol 10.159 UNITS/KG/HR Sodium Chloride 500 mls @ 20 mls/hr 01/24/19 13:45 01/24/19 13:48 Saline 0.9% IV 20 mls/hr .Q24H CHARAN Administration Sodium Chloride 1,000 ml/ IV 1,000 mls @ 98.43 mls/hr 01/25/19 08:13 Solution IV 01/25/19 18:22 .[id number] ONE 1 ML/KG/HR Montelukast Sodium 10 mg 01/25/19 09:00 01/25/19 09:09 Singulair PO 10 mg DAILY CHARAN Administration Nitroglycerin 0.4 mg 01/24/19 13:26 01/24/19 14:18 Nitrostat SUBLINGUAL 0.4 mg Q5M PRN Administration Chest Pain Nitroglycerin 1 inch 01/24/19 18:00 01/25/19 05:51 Nitro-Bid Oint TOPICAL Not Given Q6HR CHARAN Intake and Output 01/24/19 01/25/19 01/25/19 22:59 06:59 14:59 Intake Total 330.667 Balance 330.667 Intake: Intake, IV Titration 90.667 Amount Heparin Sod,Pork in 0.45% 90.667 NaCl 25,000 unit In 0.45 % NaCl 1 250ml.bag @ 10. 159 UNITS/KG/HR 10 mls/hr IV .Q24H [facility] Rx#: [id number] Oral 240 Other: Voiding Method Toilet Toilet Toilet # Voids 1 1 01/24/19 12:15 01/24/19 12:15
--- NOTE | 2019-01-25 11:45 | ECHOF ---
Referral Reason:cp, nstemi MEASUREMENTS -------- HEIGHT: 180.3 cm WEIGHT: 98.4 kg BP: 111/68 RVIDd: 3.3 cm (< 3.3) IVSd: 1.2 cm (0.6 - 1.1) LVIDd: 4.9 cm (3.9 - 5.3) LVPWd: 1.3 cm (0.6 - 1.1) IVSs: 1.8 cm LVIDs: 3.6 cm LVPWs: 2.0 cm LA Diam: 3.4 cm (2.7 - 3.8) LAESV Index (A-L): 24.77 ml/m MV EXCURSION: 10.412 mm (> 18.000) MV EF SLOPE: 89 mm/s (70 - 150) EPSS: 1.0 cm MV E Rudi: 0.83 m/s MV DecT: 214 ms MV A Rudi: 0.72 m/s MV E/A Ratio: 1.16 RAP: 5.00 mmHg RVSP: 33.05 mmHg TAPSE: 21.02 mm FINDINGS -------- Resting bradycardia (HR<60bpm). This was a technically adequate study. The left ventricular size is normal. There is mild concentric left ventricular hypertrophy. Overa ll left ventricular systolic function is normal with, an EF between 55 - 60 %. The right ventricle is mildly enlarged. Normal LA size by volume 22+/-6 ml/m2. The right atrium is normal in size. Lipomatous Hypertrophy of the atrial septum is present There is mild aortic valve sclerosis. Mild mitral annular calcification present. There is trace mitral regurgitation. Mild tricuspid regurgitation present. Right ventricular systolic pressure is normal at < 35 mmHg. The pulmonic valve was not well visualized. The aortic root size is normal. Normal inferior vena cava with normal inspiratory collapse consistent with estimated right atrial pre ssure of 5 mmHg. There is no pericardial effusion. CONCLUSIONS -------- 1. Resting bradycardia (HR<60bpm). 2. This was a technically adequate study. 3. The left ventricular size is normal. 4. There is mild concentric left ventricular hypertrophy. 5. Overall left ventricular systolic function is normal with, an EF between 55 - 60 %. 6. The right ventricle is mildly enlarged. 7. Normal LA size by volume 22+/-6 ml/m2. 8. The right atrium is normal in size. 9. Lipomatous Hypertrophy of the atrial septum is present 10. There is mild aortic valve sclerosis. 11. Mild mitral annular calcification present. 12. There is trace mitral regurgitation. 13. Mild tricuspid regurgitation present. 14. Right ventricular systolic pressure is normal at < 35 mmHg. 15. The pulmonic valve was not well visualized. 16. The aortic root size is normal. 17. Normal inferior vena cava with normal inspiratory collapse consistent with estimated right atrial pressure of 5 mmHg. 18. There is no pericardial effusion. HAM BONER: Keyla Irby RDCS
--- NOTE | 2019-01-25 12:06 | P.HPIM ---
History of Present Illness 73-year-old male presented to family physician with complaints of chest pain that was persistent all day. In the office patient became nauseous diaphoretic and experienced syncopal episode. Patient was then admitted through the em ergency room. Patient states that he had chest pressure that radiated to jaw and left Review of Systems Constitutional: Reports fatigue Cardiovascular: Reports chest pain, Reports syncope Gastrointestinal: Reports nausea Past Medical History Past Medical History: Asthma, Cancer, Hyperlipidemia, Hypertension, Osteoarthritis (OA), Pneumonia, Skin Disorder, Sleep Apnea/CPAP/BIPAP, Syncope Additional Past Medical History / Comment(s): Prostate cancer with surgery, skin cancer with removals, KATJA with bipap, pneumonia as a 4 yr old, seasonal al lergies, arthritis in bilateral knees and hands. History of Any Multi-Drug Resistant Organisms: None Reported Past Surgical History: Heart Catheterization, Hernia Repair, Orthopedic Surgery, Prostate Surgery Additional Past Surgical History / Comment(s): Robotic prostatectomy, R tennis elbow, bilateral knee arthroscopies, umbilical hernia repair, incisional hernia repair, skin cancer removals, colonoscopy, sinus surgery. Past Anesthesia/Blood Transfusion Reactions: Postoperative Nausea & Vomiting (PONV) Smoking Status: Former smoker - Past Family History Brother(s) Family Medical History: Cancer Additional Family Medical History / Comment(s): Nonhodgkins lymphoma Mother Family Medical History: Cancer Additional Family Medical History / Comment(s): Mother had breast cancer. Father Family Medical History: Vascular Disorder Additional Family Medical History / Comment(s): Father had vascular disease. He was a smoker. Medications and Allergies Home Medications Medication Instructions Recorded Confirmed Type Atorvastatin Calcium [Lipitor] 20 mg PO DAILY 03/17/16 01/24/19 History Hydrochlorothiazide 25 mg PO DAILY 03/17/16 01/24/19 History Montelukast Sodium [Singulair] 10 mg PO DAILY 03/17/16 01/24/19 History buPROPion HCL [Bupropion HCl Sr] 150 mg PO DAILY 03/17/16 01/24/19 History Allergies Allergy/AdvReac Type Severity Reaction Status Date / Time fluticasone AdvReac Rash/Hives Verified 01/24/19 11:55 [From Advair Diskus] salmeterol AdvReac Rash/Hives Verified 01/24/19 11:55 [From Advair Diskus] Physical Exam Vitals: Vital Signs Temp Pulse Pulse Pulse Pulse Pulse Resp 01/25/19 07:47 97.5 F L 50 L 18 01/25/19 04:00 97.5 F L 52 L 18 01/25/19 03:55 18 01/24/19 23:40 97.9 F 52 L 18 01/24/19 19:18 62 63 73 01/24/19 18:12 01/24/19 17:29 97.6 F 55 L 18 01/24/19 17:00 17 01/24/19 16:30 60 15 01/24/19 16:00 58 L 18 01/24/19 15:30 58 L 17 01/24/19 15:00 64 16 01/24/19 14:30 61 17 01/24/19 14:00 55 L 17 01/24/19 13:30 54 L 01/24/19 13:28 55 L BP BP BP BP BP Pulse Ox 01/25/19 07:47 111/68 98 01/25/19 04:00 119/73 96 01/25/19 03:55 01/24/19 23:40 117/68 97 01/24/19 19:18 140/69 154/81 135/70 96 01/24/19 18:12 97 01/24/19 17:29 137/77 97 01/24/19 17:00 117/73 96 01/24/19 16:30 126/75 97 01/24/19 16:00 126/77 97 01/24/19 15:30 133/77 98 01/24/19 15:00 140/102 98 01/24/19 14:30 138/79 97 01/24/19 14:00 141/87 96 01/24/19 13:30 144/89 96 01/24/19 13:28 141/83 96 Intake and Output 01/24/19 01/25/19 01/25/19 22:59 06:59 14:59 Intake Total 330.667 Balance 330.667 Intake: Intake, IV Titration 90.667 Amount Heparin Sod,Pork in 0.45% 90.667 NaCl 25,000 unit In 0.45 % NaCl 1 250ml.bag @ 10. 159 UNITS/KG/HR 10 mls/hr IV .Q24H [facility] Rx#: [id number] Oral 240 Other: Voiding Method Toilet Toilet Toilet # Voids 1 1 - Constitutional General appearance: mild distress - EENT Eyes: PERRLA - Respiratory Respiratory: bilateral: CTA - Cardiovascular Rhythm: regular - Gastrointestinal General gastrointestinal: soft - Integumentary Integumentary: normal - Neurologic Neurologic: CNII-XII intact - Musculoskeletal Musculoskeletal: gait normal - Psychiatric Psychiatric: A&O x's 3, appropriate affect, intact judgment & insight Results CBC & Chem 7: 01/24/19 12:15 01/24/19 12:15 Labs: Abnormal Lab Results - Last 24 Hours (Table) 01/24/19 01/25/19 01/25/19 Range/Units 19:20 00:34 05:10 APTT 44.0 H (22.0-30.0) sec Troponin I 0.051 H* 0.063 H* (0.000-0.034) ng/mL Chest x-ray: report reviewed (Cardiac echo and normal ejection fraction) Thrombosis Risk Factor Assmnt - Choose All That Apply Any of the Below Risk Factors Present?: Yes Each Factor Represents 1 point: Obesity (BMI >25) Other Risk Factors: Yes Each Risk Factor Represents 2 Points: Age 61-74 years, Malignancy Other congenital or acquired thrombophilia - If yes, enter type in comment: No Thrombosis Risk Factor Assessment Total Risk Factor Score: 5 Thrombosis Risk Factor Assessment Level: High Risk Assessment and Plan Plan: Assessment Chest pain unstable angina Non-ST elevation ME with elevated troponin History of hypertension Hyperlipidemia Asthma Cancer of prostate Sleep apnea was CPAP Contact dermatitis poison angel exposure Plan Patient to go to Lab today
[2019-01-25] MEDS ORDERED: CALAMINE/ZINC OXIDE LOTION 177 ML BTL TOPICAL PRN (12:50)
[2019-01-25] MEDS ORDERED: MIDAZOLAM (PF) 2 MG/2 ML VIAL IVP ONE ×2 (15:30→15:46)
[2019-01-25] MEDS ORDERED: IV FLUID CONTINUATION 900 ML IV ONE (15:33)
[2019-01-25] MEDS ORDERED: LIDOCAINE 1% INJ 10MG/ML (20 ML MDV) SQ ONE (15:33)
[2019-01-25] MEDS ORDERED: VERAPAMIL SYRINGE (5 MG/10 ML) INTRAARTER ONE (15:35)
[2019-01-25] MEDS ORDERED: HEPARIN SODIUM 1,000 UN/ML (10ML VL) IV ONE ×2 (15:36→16:20)
[2019-01-25] MEDS: NITROGLYCERIN 1000MCG/10ML SYRINGE INTRACORON ONE ×2 (15:56→16:00)
[2019-01-25] MEDS ORDERED: IOPAMIDOL-370 125ML BTL INJ ONE (16:02)
[2019-01-25] MEDS ORDERED: CLOPIDOGREL 75 MG TAB PO ONE (16:02)
[2019-01-25] MEDS ORDERED: ATROPINE SULFATE 0.1 MG/ML 10ML SYRINGE IV PRN (16:10)
[2019-01-25] MEDS ORDERED: ZOLPIDEM 5 MG TAB PO PRN (16:10)
[2019-01-25] MEDS ORDERED: RX INFO: IV CONTRAST WAS GIVEN 1 EACH MISC MISCELLANE PRN (16:10)
[2019-01-25] MEDS ORDERED: NITROGLYCERIN SL TABS 0.4 MG TAB SUBLINGUAL PRN (16:10)
[2019-01-25] MEDS ORDERED: MAG HYDROX/AL HYDROX/SIMETH 30 ML CUP PO PRN (16:10)
[2019-01-25] MEDS ORDERED: SODIUM CHLORIDE 0.9% 1,000 ML IV SCH (16:15)
--- NOTE | 2019-01-25 19:13 | CC ---
CARDIAC CATHETERIZATION REPORT DATE OF SERVICE: January 25, 2019 PERFORMING PHYSICIAN: Cedric Cooper MD. PROCEDURE PERFORMED: 1. Selective right and left coronary angiogram. 2. Left heart catheterization. 3. Successful stenting of the distal right coronary artery using 2.5 x 15 mm Xience DAVID with an excellent angiographic results and reduction of stenosis from 95% to 0%. INDICATION: This is a 73-year-old gentleman with hypertension and dyslipidemia who presented to the hospital with chest discomfort and was ruled in for acute coronary syndrome. He was seen by Dr. Vazquez who recommended proceeding with coronary angiogram. APPROACH: Right radial artery. COMPLICATION: None. LEVEL OF SEDATION: Moderate with sedation length of 30 minutes. PROCEDURE DESCRIPTION: After obtaining an informed consent, the patient was brought to the cardiac general labor. The right radial artery was cannulated using micropuncture technique. Then I placed a 6- Azeri sheath in the right radial artery. After that, I did give the patient 2 mg of verapamil IA and 10,000 units of heparin IV. Selective right and left coronary angiogram performed using JR4 and JL3.5 catheters. Left heart catheterization was performed using pigtail catheter. I did intervene on the right coronary artery. Please see a separate paragraph for that. SELECTIVE CORONARY ANGIOGRAM: 1. The RCA is a large caliber vessel and it is a dominant vessel. The RCA in the proximal and midportion appeared to be angiographically normal. Distally just before the bifurcation into PDA and PLV branches appeared to have a tight lesion in the range of 95 percent. The PDA and PLV branches appeared to be angiographically normal. 2. The left main is angiographically normal. It bifurcates into left circumflex and left anterior descending artery. 3. The left circumflex is a large caliber vessel and it is a nondominant vessel. The proximal and mid left circumflex appeared to have mild disease only. It gives rise into the first and second obtuse marginal branches and appeared to have the appeared to have mild disease only. The circumflex distally appeared to be angiographically normal. 4. The ramus intermedius appeared to be a large caliber vessel with mild disease only. 5. The LAD: The proximal LAD appeared to have mild to moderate disease only. The mid and distal LAD appeared to be angiographically normal. 6. HEMODYNAMICS: The left ventricular end-diastolic pressure was about 2 mmHg without significant gradient across aortic valve. PCI OF THE RCA: Anticoagulation was continued using heparin only and we checked the ACT before we intervened. After that, I did engage the RCA using a JR4 guide. I did wire the RCA using a whisper wire and I did a isidro wire with a BMW just to incur the guide better. After that, I did balloon angioplasty 2.5 x 12 mm balloon before I deployed 2.5 x 15 mm Xience drug-eluting stent where the stent was positioned under fluoroscopy guidance and deployed under 16 atmospheres for 20 seconds. The following angiogram showed excellent angiographic results and the procedure was completed without any complication. CONCLUSION: 1. Critical disease involving the distal right coronary artery. 2. Successful stenting of the distal RCA using 2.5 x 15 mm Xience DAVID with an excellent angiographic results. 3. Mild disease involving the left circumflex coronary artery. 4. [id number]-dyiuvcaf disease involving the left anterior descending artery. POSTPROCEDURE MANAGEMENT: 1. Dual anti-platelet therapy. 2. Risk factor modification. 3. Follow up with the patient. MMODL / IJN: [id number] /
--- NOTE | 2019-01-25 19:29 | LTR ---
01/25/2019 To: Dr. Lebron Re: Stefan Cervantes (47) Dear Dr. Lebron, Mr. Stefan Cervantes underwent today a heart catheterization after he presented to [facility] with chest discomfort and ruled in for acute non- ST- elevation MT. The heart catheterization revealed critical disease involving the distal RCA. He underwent successful stenting of the RCA with an excellent angiographic result and without any complication. I want to thank you for allowing me to participate in his care and please do not hesitate to call if you have any question or concerns. Sincerely, Cedric Cooper MD [id number] / WANGN: [id number] /
[2019-01-25] MEDS: TRIAMCINOLONE 0.1% CREAM 80 GM TUBE TOPICAL SCH (22:47)
[2019-01-26 08:13] VITALS: TEMP 97.5
[2019-01-26] MEDS ORDERED: ATORVASTATIN 80 MG TAB PO SCH (09:00)
[2019-01-26] MEDS ORDERED: CLOPIDOGREL 75 MG TAB PO SCH (09:00)
[2019-01-26] MEDS: MONTELUKAST 10 MG TAB PO SCH (09:11)
[2019-01-26] MEDS: HYDROCHLOROTHIAZIDE 25 MG TAB PO SCH (09:11)
[2019-01-26] MEDS: ASPIRIN 325 MG TAB PO SCH (09:11)
[2019-01-26] MEDS: buPROPion SR 150 MG TABLET.ER PO SCH (09:14)
[2019-01-26] MEDS: TRIAMCINOLONE 0.1% CREAM 80 GM TUBE TOPICAL SCH (09:18)
[2019-01-26] MEDS: NITROGLYCERIN OINT 1 INCH/GM PACKET TOPICAL SCH ×3 (09:18→12:37)
[2019-01-26 11:22] VITALS: BMI 29.4
[2019-01-26 11:47] VITALS: BP 150/84; PULSE 61; RESP 20
[2019-01-26] MEDS ORDERED: METOPROLOL TARTRATE 12.5 MG TAB PO SCH (12:00)
--- NOTE | 2019-01-26 12:32 | P.DS ---
Providers Date of admission: 01/25/19 12:56 Expected date of discharge: 01/26/19 Attending physician: Troy Lebron Consults: 01/24/19 13:26 Consult Physician Urgent Consulting Provider: Dolores Wilkins Consult Reason/Comments: Unstable angina Do you want consulting provider notified?: Yes 01/25/19 16:10 Consult Physician Routine Consulting Provider: Dolores Wilkins Consult Reason/Comments: Post Interventional patient Do you want consulting provider notified?: Already Contacted Primary care physician: Troy Lebron Hospital Course: Final diagnosis Chest pain unstable angina Non-ST elevation AK with elevated troponin History of hypertension Hyperlipidemia History of asthma History of prostate cancer Sleep apnea with CPAP contact dermatitis, poison angel exposure Discharge disposition Patient is being discharged in a stable condition with guarded prognosis to home and will follow-up with Dr. Lebron his primary care provider upon discharge. Patient will also follow-up with Dr. Vazquez cardiology in the office in one week. Total time taken is 35 minutes. History of present illness This is a 73-year-old male was sent here by his primary care provider and well in the office had some chest pain that was persistent and was sent to the emergency room and was being closely monitored. During hospitalization patient underwent cardiac catheterization with Dr. Cooper and had stent placement to the distal right coronary artery. Cardiology was following closely. Patient denies any chest pain, shortness of breath, or palpitations at this time. Patient is afebrile. Patient denies any nausea or vomiting and is tolerating diet. Patient states he has not had a bowel movement yet today but didn't really start eating until late last night. Patient denies any abdominal discomfort or tenderness at this time. Currently patient's condition is stable with much improvement and will be going home today. Patient will follow-up with cardiology in the outpatient setting in one week as scheduled. Per cardiology recommendations patient will be started on dual antiplatelet therapy as well as a low-dose of beta tammy, increase in statin, and will continue on hydrochlorothiazide for blood pressure. Guarded prognosis. On exam vital signs are stable. Temp is 97.5F, pulse is 61, respirations are 20, blood pressure is 150/84, and oxygen saturation is 97% on room air. Cardio S1 and S2 are heard. Respiratory system is clear to auscultation. Abdomen is soft and nontender. Nervous system shows no focal deficits. Please refer to medication reconciliation sheet for a list of medications. Patient Condition at Discharge: Fair Plan - Discharge Summary Discharge Rx Participant: No New Discharge Prescriptions: New Aspirin 81 mg PO DAILY #30 chewable Atorvastatin [Lipitor] 80 mg PO DAILY #90 tab Metoprolol Tartrate 12.5 mg PO DAILY #30 tab Nitroglycerin Sl Tabs [Nitrostat] 0.4 mg SUBLINGUAL Q5M PRN #100 tab PRN Reason: Chest Pain Clopidogrel Bisulfate [Plavix] 75 mg PO DAILY #90 tab Triamcinolone 0.1% Cream [Kenalog 0.1% Cream] 1 applic TOPICAL BID #1 applic Continue buPROPion HCL [Bupropion HCl Sr] 150 mg PO DAILY Montelukast Sodium [Singulair] 10 mg PO DAILY Hydrochlorothiazide 25 mg PO DAILY Discontinued Atorvastatin Calcium [Lipitor] 20 mg PO DAILY Discharge Medication List Hydrochlorothiazide 25 mg PO DAILY 03/17/16 [History] Montelukast Sodium [Singulair] 10 mg PO DAILY 03/17/16 [History] buPROPion HCL [Bupropion HCl Sr] 150 mg PO DAILY 03/17/16 [History] Aspirin 81 mg PO DAILY #30 chewable 01/26/19 [Rx] Atorvastatin [Lipitor] 80 mg PO DAILY #90 tab 01/26/19 [Rx] Clopidogrel Bisulfate [Plavix] 75 mg PO DAILY #90 tab 01/26/19 [Rx] Metoprolol Tartrate 12.5 mg PO DAILY #30 tab 01/26/19 [Rx] Nitroglycerin Sl Tabs [Nitrostat] 0.4 mg SUBLINGUAL Q5M PRN #100 tab 01/26/19 [Rx] Triamcinolone 0.1% Cream [Kenalog 0.1% Cream] 1 applic TOPICAL BID #1 applic 01/26/19 [Rx] Follow up Appointment(s)/Referral(s): Troy Lebron MD [Primary Care Provider] - 1-2 days Aaron Vazquez MD [STAFF PHYSICIAN] - 02/06/19 2:30 pm (Tuesday in [facility] by [place] (2nd floor)) Ambulatory/Diagnostic Orders: Basic Metabolic Panel [LAB.AMB] Time Frame: 3 Days, Location: None Selected Patient Instructions/Handouts: *Surgery [facility] - After Heart Catheterization - Inpatient Services Rn Instructions, After Radial Heart Catheterization (GEN) Activity/Diet/Wound Care/Special Instructions: Activity limited until follow up continue current heart healthy diet follow up with primary care provider this week follow up with cardiology as scheduled Discharge Disposition: HOME SELF-CARE
--- NOTE | 2019-01-27 00:58 | PN ---
PROGRESS NOTE Mr. Cervantes is in sinus rhythm, doing well. He has bronchial asthma. No chest pain or shortness of breath. He underwent stenting of distal RCA by right radial approach by Dr. Cooper, doing well. Site is clean and dry. Vitals are stable. S1/S2 heard normally. Lungs are clear, decent air entry. Abdomen and lower extremity exam unchanged. The patient can be discharged today. Discharge instructions were given. Medications were reviewed. I gave him scripts for dual antiplatelet therapy, statins and a small dose of beta tammy. He will be discharged today and see Dr. Mckenzie Vazquez in one week. MMODL / IJN: [id number] /
== END 2019-01-26 14:40 | disposition home or self-care (01) | DRG 247 ==
LOC: EC 11:35 → 1SOBS 13:26 → OBSVTOIN 01-25 12:56 → 3SCARD 01-25 16:19
PROVIDERS: ADMIT Family Medicine; ATTEND Family Medicine
PROC: 4A023N7 Measurement of Cardiac Sampling and Pressure, Left Heart, Percutaneous Approach (ICD-10-PCS; principal; 2019-01-25 12:30)
PROC: B2111ZZ Fluoroscopy of Multiple Coronary Arteries using Low Osmolar Contrast (ICD-10-PCS; principal; 2019-01-25 12:30)
PROC: 027034Z Dilation of Coronary Artery, One Artery with Drug-eluting Intraluminal Device, Percutaneous Approach (ICD-10-PCS; principal; 2019-01-25 12:30)
DX: I21.4 Non-ST elevation (NSTEMI) myocardial infarction (principal); I25.110 Atherosclerotic heart disease of native coronary artery with unstable angina pectoris; L23.7 Allergic contact dermatitis due to plants, except food; I10 Essential (primary) hypertension; E78.5 Hyperlipidemia, unspecified; G47.33 Obstructive sleep apnea (adult) (pediatric); M19.90 Unspecified osteoarthritis, unspecified site; G47.30 Sleep apnea, unspecified; M17.0 Bilateral primary osteoarthritis of knee; J45.909 Unspecified asthma, uncomplicated; F32.9 Major depressive disorder, single episode, unspecified; Z79.899 Other long term (current) drug therapy; Z85.828 Personal history of other malignant neoplasm of skin; Z85.46 Personal history of malignant neoplasm of prostate; Z87.891 Personal history of nicotine dependence; Z80.7 Family history of other malignant neoplasms of lymphoid, hematopoietic and related tissues; Z80.3 Family history of malignant neoplasm of breast; Z88.8 Allergy status to other drugs, medicaments and biological substances; Z99.89 Dependence on other enabling machines and devices; Z98.890 Other specified postprocedural states; Z87.01 Personal history of pneumonia (recurrent)
CPT/HCPCS: 36415; 71046; 80053; 80061; 82565; 83735; 83880; 84484; 85025; 85379; 85610; 85730; 90686; 93005; 93306; 93458; 94760; 96361; 96365; 96366; 96376; 99285; C1874

== ENCOUNTER → 2019-01-30 | Outpatient (CLI) | payer MEDICARE, BC ==
--- NOTE | 2019-01-30 15:07 | US ---
EXAMINATION TYPE: US venous doppler duplex LE LT DATE OF EXAM: 01/30/2019 2:54 PM COMPARISON: None CLINICAL HISTORY: R60.0 EDEMA. Left leg pain. No redness or swelling. On blood thinners. Patient h ad heart cath x 1 week ago. SIDE PERFORMED: Left TECHNIQUE: The lower extremity deep venous system is examined utilizing real time linear array sonog jos with graded compression, doppler sonography and color-flow sonography. VESSELS IMAGED: External Iliac Vein (EIV) Common Femoral Vein Deep Femoral Vein Greater Saphenous Vein * Femoral Vein Popliteal Vein Small Saphenous Vein * Proximal Calf Veins (* superficial vessels) Grayscale, color doppler, spectral doppler imaging performed of the deep veins of the left lower extr emity. There is normal flow, compressibility, vascular waveforms. Left Leg: Negative for DVT IMPRESSION: No sonographic evidence of deep venous thrombosis within the left lower extremity.
== END | disposition home or self-care (01) ==
LOC: RADUSWWP 14:27
PROVIDERS: ATTEND Family Medicine
DX: R60.0 Localized edema (principal)

== ENCOUNTER → 2020-10-23 | Outpatient (CLI) | payer MEDICARE, BC ==
--- NOTE | 2020-10-23 22:47 | SFUN ---
SLEEP CENTER FOLLOW UP NOTE DATE OF SERVICE: 10/23/2020 74-year-old gentleman has been followed in Sleep Center for treatment of obstructive sleep apnea hypopneas syndrome. Recently patient's BiPAP unit started to stop during the sleep night. His [place] Sleepiness Scale today increased to 12. I checked BiPAP unit, which started to work but not right after I pulled the button on. Pressure is 14/10. When patient was able to use it, Apnea-hypopnea index was 3.7, which is in normal range. MEDICATIONS: Singular, bupropion, Lipitor, aspirin. PHYSICAL EXAMINATION: GENERAL: Patient in no distress. VITAL SIGNS: BP 143/82, HR 58, RR 15, height 5 feet and 10 inches, weight 215 pounds. Body mass index 30.8, temperature 97.8, oxygen saturation at room air 96%. HEENT: PERRLA, EOMI, evaluation of oropharynx showed low position of soft palate. NECK: Supple, no JVD. Thyroid is not palpable. LUNGS: Clear to percussion and to auscultation. Good air exchange. No wheezing or rhonchi. HEART: S1, S2 regular. No murmurs, gallops, or rubs. ABDOMEN: Soft and nontender. Bowel sounds are present. No organomegaly appreciated. EXTREMITIES: No clubbing or cyanosis. SYSTEMS SOFTWARE ENGINEER: Awake, alert, and oriented X3. Cranial nerves 2 to 7 intact. There is no fasciculation or atrophy noted. No focal deficits observed. IMPRESSION: 1. Obstructive sleep apnea-hypopnea syndrome. The patient BiPAP unit broken. 2. Hypertension. 3. History of depression. 4. Hyperlipidemia. 5. History of asthma. 6. Status post surgical treatment of prostate CA. 7. History of hayfever. 8. Status post nasal surgery. 9. Status post bilateral knee surgery for meniscus problems. 10.Status post umbilical hernia, surgical treatment. PLAN: 1. Prescription to replace BiPAP unit was written and faxed to [facility]. 2. Patient will continue to use PAP equipment every night for the whole night. 3. Sleep hygiene with regular time in bed for at least 7-1/2 to 8 hours. 4. Precautions related to driving. No driving if feeling sleepiness. 5. I will maintain all necessary prescription for PAP supplies including mask, tube, filters. 6. Watching weight. 7. Follow-up visit in -90 days after patient received new BIPAP unit to evaluate compliance, clinical response and to make any changes if necessary. Thank you very much for allowing me to participate in management of your patient. Sincerely, Bill Knight MD, PhD, FAASM Diplomat of [place] [employer] [place] [employer] Flight Service Agent of [facility] [place] MMODL / WANGN: [id number] /
== END ==
LOC: SLEEP 15:34
PROVIDERS: ATTEND Internal Medicine
DX: G47.33 Obstructive sleep apnea (adult) (pediatric) (principal); I10 Essential (primary) hypertension; F32.9 Major depressive disorder, single episode, unspecified; E78.5 Hyperlipidemia, unspecified; J45.909 Unspecified asthma, uncomplicated; Z85.46 Personal history of malignant neoplasm of prostate; Z87.19 Personal history of other diseases of the digestive system; Z98.890 Other specified postprocedural states; Z87.892 Personal history of anaphylaxis; Z79.899 Other long term (current) drug therapy; Z88.8 Allergy status to other drugs, medicaments and biological substances; Z87.891 Personal history of nicotine dependence

== ENCOUNTER 2020-11-11 07:50 | Day surgery (SDC) | payer BC, MEDICARE, OTHER ==
[2020-11-10 08:25] VITALS: BMI 30.8
[~2020-11-11 07:50] MED LIST changes: -HEPARIN SODIUM,PORCINE 5,000 UNIT/ML 1 ML VIAL SQ ONE; -LIDOCAINE 1% 20 ML VIAL (10MG/ML) FOR IV START INTRADERMA PRN; -ONDANSETRON 4 MG/2 ML VIAL IVP ONE; -ceFAZolin 2 GM in SODIUM CHLORIDE 0.9% 100 ML IVPB ONE
[2020-11-11 08:13] VITALS: RESP 16; TEMP 97.8
[2020-11-11] MEDS ORDERED: LIDOCAINE 1% INJ 10MG/ML (20 ML MDV) ONE (08:31)
[2020-11-11] MEDS ORDERED: PROPOFOL 10 MG/ML 20 ML VIAL IV ONE (08:31)
--- NOTE | 2020-11-11 09:01 | P.PCN ---
Date of Procedure: 11/11/20 Description of Procedure: BRIEF HISTORY: Patient is a 74-year-old male colonoscopy for screening for malignant neoplasm in the colon. The patient has had multiple colonoscopies in the past with tubular adenomas removed. He believes his last colonoscopy was in 2018. He denies any change in bowel habits or family history of colon cancer. PROCEDURE PERFORMED: Colonoscopy with polypectomy. PREOPERATIVE DIAGNOSIS: Screening for malignant neoplasm in the colon, personal history of colon polyps, last colonoscopy 2018 by report from patient. ESTIMATED BLOOD LOSS: Minimal. IV sedation per Anesthesia. PROCEDURE: After informed consent was obtained, the patient, was brought into the endoscopy unit. IV sedation was administered by Anesthesia under continuous monitoring. Digital rectal examination was normal. Initially the Olympus CF-190 flexible video colonoscope was then inserted in the rectum, gradually advanced into the cecum without any difficulty. Careful examination was performed as the scope was gradually being withdrawn. Ileocecal valve and the appendiceal orifice were v isualized and appeared normal. Prep was excellent. Mucosa of the cecum, ascending colon, transverse colon, descending colon, sigmoid colon, and rectum appeared normal, with multiple small and large mouth diverticula noted in the sigmoid colon. A flat 5 mm cecal polyp was removed with cold snare polypectomy. Diminutive polyps measuring 1-2 mm in length removed from the hepatic flexure, transverse colon 2 and descending colon. Retroflexion was performed in the rectum and no lesions were seen, with low-grade internal hemorrhoids noted. The patient tolerated the procedure well. IMPRESSION: Flat 5 mm cecal polyp removed with cold snare polypectomy. Diminutive polyps removed with cold forcep polypectomy from the hepatic flexure, transverse colon 2 and descending colon. RECOMMENDATIONS: Findings of this examination were discussed with the patient and his family. Okay to resume diet. Okay to resume medications. Await pathology from polypectomies. Recommend repeat colonoscopy in 3 years for colon polyps pending pathology from polypectomies.
[2020-11-11 09:18] VITALS: BP 120/73; PULSE 55
== END 2020-11-11 10:00 | disposition home or self-care (01) ==
LOC: ORWHC2ENDO 07:50
PROVIDERS: ATTEND Internal Medicine
DX: Z12.11 Encounter for screening for malignant neoplasm of colon (principal); D12.0 Benign neoplasm of cecum; D12.3 Benign neoplasm of transverse colon; D12.4 Benign neoplasm of descending colon; K57.30 Diverticulosis of large intestine without perforation or abscess without bleeding; K64.8 Other hemorrhoids; Z86.010 Personal history of colon polyps; Z87.891 Personal history of nicotine dependence; Z88.8 Allergy status to other drugs, medicaments and biological substances; Z79.82 Long term (current) use of aspirin; Z79.899 Other long term (current) drug therapy; Z98.890 Other specified postprocedural states; I25.10 Atherosclerotic heart disease of native coronary artery without angina pectoris; I10 Essential (primary) hypertension; E78.5 Hyperlipidemia, unspecified; I25.2 Old myocardial infarction; Z95.5 Presence of coronary angioplasty implant and graft; G47.33 Obstructive sleep apnea (adult) (pediatric); Z85.46 Personal history of malignant neoplasm of prostate
CPT/HCPCS: 88305; 45380; 45385; J2001; J2704

== ENCOUNTER → 2020-12-31 | Outpatient (CLI) | payer MEDICARE, BC ==
--- NOTE | 2020-12-31 19:01 | SFUN ---
SLEEP CENTER FOLLOW UP NOTE DATE OF SERVICE: 12/31/2020 This 75-year-old gentleman has been followed in Sleep Center for treatment of obstructive sleep apnea-hypopnea syndrome. The patient continues to use his BiPAP equipment every night for the whole night. No snoring with the machine. [place] Sleepiness Scale today is 8, which is in normal range. I checked his BiPAP unit. Usage is 27/30 nights, and 26/30 nights for more than 4 hours with average usage 7.6 hours per night. Leak is increased at 43 L/minute. Apnea- hypopnea index 2.1. I checked the air filter. It is in bad condition and needs to be replaced. MEDICATIONS: 1. Lipitor 80 mg once a day. 2. Isosorbide 30 mg once a day. 3. Bupropion 300 mg once a day. 4. Metoprolol 25 mg once a day. 5. Montelukast 10 mg once a day. 6. Loratadine 10 mg once a day. 7. Aspirin 81 mg once a day. PHYSICAL EXAMINATION: GENERAL: Pleasant patient in no distress. VITAL SIGNS: BP 144/76, HR 72, RR 15, height 5 feet 10 inches, weight 223, body mass index 31.9, temperature 97.9, oxygen saturation at room air 96%. HEENT: PERRLA, EOMI, evaluation of oropharynx showed tongue protrudes midline. Low position of soft palate. NECK: Supple, no JVD. Thyroid is not palpable. LUNGS: Clear to percussion and to auscultation. Good air exchange. No wheezing or rhonchi. HEART: S1, S2 regular. No murmurs, gallops, or rubs. ABDOMEN: Slightly obese. EXTREMITIES: No clubbing or cyanosis. WRAPPING MACHINE HELPER: Awake, alert, and oriented X3. Cranial nerves 2 to 7 intact. There is no fasciculation or atrophy. noted. No focal deficits observed. IMPRESSION: 1. Obstructive sleep apnea-hypopnea syndrome. The patient demonstrated great compliance with BiPAP treatment. Normal respiration on BiPAP. 2. Hypertension. 3. History of depression. 4. Hyperlipidemia. 5. History of asthma. 6. Status post surgical treatment of prostate carcinoma. 7. History of hay fever. 8. Status post nasal surgery. 9. Status post bilateral knee surgery for meniscus problems. 10.Status post surgical treatment for umbilical hernia. PLAN: 1. Changed air filter immediately. 2. According to patient, he will get a different BiPAP unit from [facility]. 3. Patient will continue to use PAP equipment every night for the whole night. 4. Sleep hygiene with regular time in bed for at least 7-1/2 to 8 hours. 5. Precautions related to driving. No driving if feeling sleepiness. 6. I will maintain all necessary prescription for PAP supplies including mask, tube, filters. 7. Watching weight. 8. Follow-up visit in 30 to 90 days after the patient gets his new unit from [facility]. Thank you very much for allowing me to participate in the management of your patient. Sincerely, Bill Knight MD, PhD, FAASM Diplomat of [place] [employer] Sleep Medicine Board of [place] [employer] Carbon Cutter of [facility] [place] MMCONCEPCION / HANNA: [id number] /
== END ==
LOC: SLEEP 10:56
PROVIDERS: ATTEND Internal Medicine
DX: G47.33 Obstructive sleep apnea (adult) (pediatric) (principal); I10 Essential (primary) hypertension; F32.9 Major depressive disorder, single episode, unspecified; E78.5 Hyperlipidemia, unspecified; J45.909 Unspecified asthma, uncomplicated; Z99.89 Dependence on other enabling machines and devices; Z85.46 Personal history of malignant neoplasm of prostate; Z87.892 Personal history of anaphylaxis; Z98.890 Other specified postprocedural states; Z79.899 Other long term (current) drug therapy

== ENCOUNTER 2021-01-18 15:01 | Emergency (ER) | payer MEDICARE, BC ==
--- NOTE | 2021-01-18 17:30 | ED ---
General Adult HPI - General Source: patient, RN notes reviewed Mode of arrival: ambulatory Limitations: no limitations - History of Present Illness -: days(s) (2) <Sandeep Glass - Last Filed: 01/18/21 19:07> <Himanshu Ramsay - Last Filed: 01/18/21 20:33> - General Chief complaint: Upper Respiratory Infection Stated complaint: pcr test and infusion Time Seen by Provider: 01/18/21 17:20 - History of Present Illness Initial comments: Patient had a positive Covid test at [facility] today and was sent by his primary care doctor to be given monoclonal antibodies infusion. He states that his symptoms started 2 days ago with body aches and cough. He denies any nausea vomiting diarrhea chest pain or fevers. He states he has been vaccinated for Covid. (Sandeep Glass) - Related Data Home Medications Medication Instructions Recorded Confirmed Montelukast Sodium [Singulair] 10 mg PO DAILY 03/17/16 11/10/20 Isosorbide Mononitrate [Isosorbide 30 mg PO DAILY 11/10/20 11/10/20 Mononitrate ER] Loratadine [Claritin] 10 mg PO DAILY 11/10/20 11/10/20 Triamcinolone 0.1% Cream [Kenalog 1 applic TOPICAL BID PRN 11/10/20 11/10/20 0.1% Cream] buPROPion HCL [Wellbutrin XL] 300 mg PO DAILY 11/10/20 11/10/20 Previous Rx's Medication Instructions Recorded Aspirin 81 mg PO DAILY #30 chewable 01/26/19 Atorvastatin [Lipitor] 80 mg PO DAILY #90 tab 01/26/19 Metoprolol Tartrate 12.5 mg PO DAILY #30 tab 01/26/19 Nitroglycerin Sl Tabs [Nitrostat] 0.4 mg SUBLINGUAL Q5M PRN #100 tab 01/26/19 Allergies Allergy/AdvReac Type Severity Reaction Status Date / Time fluticasone AdvReac Rash/Hives Verified 01/18/21 15:44 [From Advair Diskus] salmeterol AdvReac Rash/Hives Verified 01/18/21 15:44 [From Advair Diskus] Review of Systems ROS Other: All systems not noted in ROS Statement are negative. <Sandeep Glass - Last Filed: 01/18/21 19:07> ROS Other: All systems not noted in ROS Statement are negative. <Himanshu Ramsay - Last Filed: 01/18/21 20:33> ROS Statement: Those systems with pertinent positive or pertinent negative responses have been documented in the HPI. Past Medical History Past Medical History: Asthma, Cancer, Hyperlipidemia, Hypertension, Myocardial Infarction (DE), Osteoarthritis (OA), Pneumonia, Skin Disorder, Sleep Apnea/CPAP/BIPAP, Syncope Additional Past Medical History / Comment(s): Prostate cancer with surgery, skin cancer with removals, KATJA with bipap, pneumonia as a 4 yr old, seasonal allergies, arthritis in bilateral knees and hands. History of Any Multi-Drug Resistant Organisms: None Reported Past Surgical History: Heart Catheterization With Stent, Hernia Repair, Orthopedic Surgery, Prostate Surgery Additional Past Surgical History / Comment(s): Robotic prostatectomy, R tennis elbow, bilateral knee arthroscopies, umbilical hernia repair, incisional hernia repair, skin cancer removals, colonoscopy, sinus surgery. Past Anesthesia/Blood Transfusion Reactions: Postoperative Nausea & Vomiting (PONV) Past Psychological History: Depression Smoking Status: Former smoker Past Alcohol Use History: Occasional Past Drug Use History: None Reported - Past Family History Brother(s) Family Medical History: Cancer Additional Family Medical History / Comment(s): Nonhodgkins lymphoma, methothelioma Mother Family Medical History: Cancer Additional Family Medical History / Comment(s): breast cancer. Father Family Medical History: Vascular Disorder Additional Family Medical History / Comment(s): Father had vascular disease. He was a smoker. <Sandeep Glass - Last Filed: 01/18/21 19:07> General Exam Limitations: no limitations General appearance: alert, in no apparent distress Head exam: Present: atraumatic, normocephalic, normal inspection Eye exam: Present: normal appearance, PERRL, EOMI. Absent: scleral icterus, conjunctival injection, periorbital swelling ENT exam: Present: normal exam, normal oropharynx, mucous membranes moist Neck exam: Present: normal inspection, full ROM. Absent: tenderness, meningismus, lymphadenopathy Respiratory exam: Present: wheezes (Right lower lobe) Cardiovascular Exam: Present: regular rate, normal rhythm, normal heart sounds. Absent: systolic murmur, diastolic murmur, rubs, gallop, clicks GI/Abdominal exam: Present: soft, normal bowel sounds. Absent: distended, tenderness, guarding, rebound, rigid Back exam: Present: normal inspection, full ROM. Absent: tenderness, CVA tenderness (R), CVA tenderness (L), rash noted Neurological exam: Present: alert, oriented X3 Psychiatric exam: Present: normal affect, normal mood Skin exam: Present: warm, dry, intact, normal color. Absent: rash <Sandeep Glass - Last Filed: 01/18/21 19:07> Course <Himanshu Ramsay - Last Filed: 01/18/21 20:33> Vital Signs 01/18/21 01/18/21 15:39 19:34 Temperature 98.2 F Pulse Rate 64 66 Respiratory 18 18 Rate Blood Pressure 134/64 132/65 O2 Sat by Pulse 95 95 Oximetry - Reevaluation(s) Reevaluation #1: 01/18/21 20:32 Reevaluation the patient feels much improved this time he will be discharged we did discuss return parameters he will follow-up as needed when necessary (Himanshu Ramsay) Medical Decision Making <Sandeep Glass - Last Filed: 01/18/21 19:07> - Medical Decision Making Patient tested positive for covid and was given a monoclonal antibody infusion. He will be discharged home to follow up with his primary care doctor as needed. He was directed to self quarantine for 10 days after symptom onset and at least 24 hours fever free. Return to the emergency room with any new or worsening symptoms or difficulty in breathing. (Sandeep Glass) - Lab Data Lab Results 01/18/21 Range/Units 17:44 Coronavirus (PCR) Detected A (Not Detectd) Disposition Is patient prescribed a controlled substance at d/c from ED?: No Time of Disposition: 19:09 <Sandeep Glass - Last Filed: 01/18/21 19:07> Is patient prescribed a controlled substance at d/c from ED?: No <Himanshu Ramsay - Last Filed: 01/18/21 20:33> Clinical Impression: COVID-19 Disposition: HOME SELF-CARE Condition: Good Instructions (If sedation given, give patient instructions): Coronavirus Disease 2019 (COVID-19) Additional Instructions: Return to the emergency room with any new or worsening symptoms including increased difficulty in breathing or chest pain. Follow-up with your primary care doctor in 1 week. Self quarantine for 10 days after symptom onset and at least 24 hours without a fever. Referrals: Troy Lebron MD [Primary Care Provider] - 1-2 days
[2021-01-18] MEDS ORDERED: SODIUM CHLORIDE 0.9% 50 ML IVPB ONE (18:45)
[2021-01-18] MEDS ORDERED: CASIRIVIMAB/IMDEVIMAB (EUA) 1,200 MG in SODIUM CHLORIDE 0.9% 100 ML IVPB ONE (19:00)
[2021-01-18 21:23] VITALS: BP 144/88; PULSE 65; RESP 20; TEMP 98
== END 2021-01-18 21:15 | disposition home or self-care (01) ==
LOC: EC 15:01
DX: U07.1 COVID-19 (principal); E78.5 Hyperlipidemia, unspecified; I10 Essential (primary) hypertension; J45.909 Unspecified asthma, uncomplicated; F32.9 Major depressive disorder, single episode, unspecified; G47.33 Obstructive sleep apnea (adult) (pediatric); I25.2 Old myocardial infarction; M19.90 Unspecified osteoarthritis, unspecified site; Z85.46 Personal history of malignant neoplasm of prostate; Z85.828 Personal history of other malignant neoplasm of skin; Z87.891 Personal history of nicotine dependence; Z79.82 Long term (current) use of aspirin; Z90.79 Acquired absence of other genital organ(s)
CPT/HCPCS: 87635; 99283; 96365; Q0243

== ENCOUNTER → 2022-09-28 | Outpatient (CLI) | payer MEDICARE, BC ==
--- NOTE | 2022-09-28 18:38 | XR ---
EXAMINATION TYPE: XR chest 2V DATE OF EXAM: 09/28/2022 1:57 PM COMPARISON: Chest radiographs from 01/24/2019 TECHNIQUE: XR chest 2V Frontal and lateral views of the chest. CLINICAL INDICATION:Male, 76 years old with history of R60.0; FINDINGS: Lungs/Pleura: There is no evidence of pleural effusion, focal consolidation, or pneumothorax. Pulmonary vascularity: Unremarkable. Heart/mediastinum: Cardiomediastinal silhouette is unremarkable. Musculoskeletal: No acute osseous pathology. IMPRESSION: No acute cardiopulmonary disease/process.
== END | disposition home or self-care (01) ==
LOC: RADXRMAIN 13:38
PROVIDERS: ATTEND Family Medicine
DX: J44.9 Chronic obstructive pulmonary disease, unspecified (principal); R60.0 Localized edema
CPT/HCPCS: 71046

== ENCOUNTER 2022-10-20 09:12 | Inpatient (IN) | payer BC, MEDICARE ==
[2022-10-20] MEDS ORDERED: ASPIRIN 81 MG PO STA (09:25)
[2022-10-20] MEDS ORDERED: NITROGLYCERIN OINT 1 INCH/GM PACKET TOPICAL STA (09:25)
--- NOTE | 2022-10-20 09:29 | ED ---
General Adult HPI - General Chief complaint: Chest Pain Stated complaint: Heart Issues Time Seen by Provider: 10/20/22 09:15 Source: patient, RN notes reviewed, old records reviewed Mode of arrival: EMS Limitations: no limitations - History of Present Illness Initial comments: This is a 76-year-old male who presents emergency department stating that he [facility] to have [facility] test today. Patient states while he was waiting he started to become nauseous lightheaded and became very diaphoretic. Patient states she's. Some chest pain when he was here in the symptoms over the emergency department to be further evaluated. When he arrived patient did have chest pain but it subsided relatively quickly. Patient states he did take his morning medication. Patient denies any recent fever chills or cough. Patient denies any difficulty breathing shortness of breath. Patient states on Celexa calf tenderness. - Related Data Home Medications Medication Instructions Recorded Confirmed Montelukast Sodium [Singulair] 10 mg PO DAILY 03/17/16 10/20/22 Isosorbide Mononitrate [Isosorbide 30 mg PO DAILY 11/10/20 10/20/22 Mononitrate ER] Triamcinolone 0.1% Cream [Kenalog 1 applic TOPICAL BID PRN 11/10/20 10/20/22 0.1% Cream] Ascorbic Acid [Vitamin C] 1,000 mg PO DAILY 10/20/22 10/20/22 Cetirizine HCl [Zyrtec] 10 mg PO DAILY 10/20/22 10/20/22 Cholecalciferol (Vitamin D3) 75 mcg PO DAILY 10/20/22 10/20/22 [Vitamin D3 (3000 Iu)] Metoprolol Tartrate 25 mg PO DAILY 10/20/22 10/20/22 Mometasone Furoate [Asmanex 220 1 puff INHALATION RT-DAILY 10/20/22 10/20/22 MCG] Nasal [place] (Unknown) 1 spray EA NOSTRIL DAILY 10/20/22 10/20/22 Zinc Gluconate [Zinc] 50 mg PO DAILY 10/20/22 10/20/22 buPROPion XL [Wellbutrin XL] 300 mg PO DAILY 10/20/22 10/20/22 Previous Rx's Medication Instructions Recorded Aspirin 81 mg PO DAILY #30 chewable 01/26/19 Atorvastatin [Lipitor] 80 mg PO DAILY #90 tab 01/26/19 Nitroglycerin Sl Tabs [Nitrostat] 0.4 mg SUBLINGUAL Q5M PRN #100 tab 01/26/19 Allergies Allergy/AdvReac Type Severity Reaction Status Date / Time fluticasone Allergy Rash/Hives Verified 10/20/22 10:19 [From Advair Diskus] salmeterol Allergy Rash/Hives Verified 10/20/22 10:19 [From Advair Diskus] Review of Systems ROS Statement: Those systems with pertinent positive or pertinent negative responses have been documented in the HPI. ROS Other: All systems not noted in ROS Statement are negative. Past Medical History Past Medical History: Asthma, Cancer, Hyperlipidemia, Hypertension, Myocardial Infarction ([place]), Osteoarthritis (OA), Pneumonia, Skin Disorder, Sleep Apnea/CPAP/BIPAP, Syncope Additional Past Medical History / Comment(s): Prostate cancer with surgery, skin cancer with removals, KATJA with bipap, pneumonia as a 4 yr old, seasonal allergies, arthritis in bilateral knees and hands. History of Any Multi-Drug Resistant Organisms: None Reported Past Surgical History: Heart Catheterization With Stent, Hernia Repair, Orthopedic Surgery, Prostate Surgery Additional Past Surgical History / Comment(s): Robotic prostatectomy, R tennis elbow, bilateral knee arthroscopies, umbilical hernia repair, incisional hernia repair, skin cancer removals, colonoscopy, sinus surgery. Past Anesthesia/Blood Transfusion Reactions: Postoperative Nausea & Vomiting (PONV) Past Psychological History: Depression Smoking Status: Former smoker Past Alcohol Use History: Occasional Past Drug Use History: None Reported - Past Family History Brother(s) Family Medical History: Cancer Additional Family Medical History / Comment(s): Nonhodgkins lymphoma, methoth elioma Mother Family Medical History: Cancer Additional Family Medical History / Comment(s): breast cancer. Father Family Medical History: Vascular Disorder Additional Family Medical History / Comment(s): Father had vascular disease. He was a smoker. General Exam - General Exam Comments Initial Comments: GENERAL: Patient is well-developed and well-nourished. Patient is nontoxic and well- hydrated and is in mild distress. ENT: Neck is soft and supple. No significant lymphadenopathy is noted. Oropharynx is clear. Moist mucous membranes. Neck has full range of motion without eliciting any pain. EYES: The sclera were anicteric and conjunctiva were pink and moist. Extraocular movements were intact and pupils were equal round and reactive to light. Eyelids were unremarkable. PULMONARY: Unlabored respirations. Good breath sounds bilaterally. No audible rales rhonchi or wheezing was noted. CARDIOVASCULAR: There is a regular rate and rhythm without any murmurs gallops or rubs. ABDOMEN: Soft and nontender with normal bowel sounds. SKIN: Skin is clear with no lesions or rashes and otherwise unremarkable. NEUROLOGIC: Patient is alert and oriented x3. Cranial nerves II through XII are grossly intact. Motor and sensory are also intact. Normal speech, volume and content. Symmetrical smile. MUSCULOSKELETAL: Normal extremities with adequate strength and full range of motion. No lower ex tremity swelling or edema. No calf tenderness. LYMPHATICS: No significant lymphadenopathy is noted PSYCHIATRIC: Normal psychiatric evaluation. Limitations: no limitations Course Vital Signs 10/20/22 10/20/22 09:13 09:17 Temperature 97.2 F L Pulse Rate 47 L 45 L Pulse Rate [ 45 L Color Dipper ] Respiratory 16 20 Rate Blood Pressure 125/86 125/86 O2 Sat by Pulse 100 Oximetry Medical Decision Making - Medical Decision Making EKG was interpreted by myself shows sinus bradycardia at 45 bpm DE interval is 203 QRSs 117 QT interval is 454 QTC is 408. Patient's EKG shows no ST segment elevation or depression. Was pt. sent in by a medical professional or institution ([facility] A[facility], BATTERY REPAIRER, urgent care, hospital, or [facility]...) When possible be specific @ -[No] Did you speak to anyone other than the patient for history (EMS, parent, family, police, friend...)? What history was obtained from this source @ -[No] Did you review nursing and triage notes (agree or disagree)? Why? @ -[I reviewed and agree with nursing and triage notes] Were old charts reviewed (outside hosp., previous admission, EMS record, old EKG, old radiological studies, urgent care reports/EKG's, [facility] records)? Report findings @ -I reviewed prior laboratory radiological studies in prior EKGs. Differential Diagnosis (chest pain, altered mental status, abdominal pain women, abdominal pain men, vaginal bleeding, weakness, fever, dyspnea, syncope, headache, dizziness, GI bleed, back pain, seizure, CVA, palpatations, mental health, musculoskeletal)? @ -Differential Chest Pain: Stable Angina, Unstable Angina, STEMI, NSTEMI Aortic Dissection, Pneumothorax, Musculoskeletal, Esophageal Spasm GERD, Cholecystitis, Pancreatitis, Zoster, this is not meant to be an all-inclusive list. EKG interpreted by me (3pts min.). @ -[As above] X-rays interpreted by me (1pt min.). @ -Chest x-ray shows no acute abnormality CT interpreted by me (1pt min.). @ -[None done] U/S interpreted by me (1pt. min.). @ -[None done] What testing was considered but not performed or refused? (CT, X-rays, U/S, labs)? Why? @ -[None] What meds were considered but not given or refused? Why? @ -[None] Did you discuss the management of the patient with other professionals (professionals i.e. , PA, BATTERY REPAIRER, lab, RT, psych nurse, social services assistant, box finisher, teacher, special loan officer, rn case mgr)? Give summary @ -I spoke with Dr. Morrow he agreed to admit the patient Was smoking cessation discussed for >3mins.? @ -[No] Was critical care preformed (if so, how long)? @ -[No] Were there social determinants of health that impacted care today? How? (Homelessness, low income, unemployed, alcoholism, drug addiction, transportation, low edu. Level, literacy, decrease access to med. care, fdc, rehab)? @ -[No] Was there de-escalation of care discussed even if they declined (Discuss DNR or withdrawal of care, Hospice)? DNR status @ -[No] What co-morbidities impacted this encounter? (DM, HTN, Smoking, COPD, CAD, Cancer, CVA, ARF, Chemo, Hep., AIDS, mental health diagnosis, sleep apnea, morbid obesity)? @ -[None] Was patient admitted / discharged? Hospital course, mention meds given and route, prescriptions, significant lab abnormalities, going to OR and other pertinent info. @ -Patient remained chest pain-free throughout the ED course labs were done and x-rays and all of which were normal range. Spoke with because he agreed to admit the patient admitted the patient I wrote admitting orders. Undiagnosed new problem with uncertain prognosis? @ -[No] Drug Therapy requiring intensive monitoring for toxicity (Heparin, Nitro, Insulin, Cardizem)? @ -[No] Were any procedures done? @ -[No] Diagnosis/symptom? @ -Chest pain Acute, or Chronic, or Acute on Chronic? @ -Acute Uncomplicated (without systemic symptoms) or Complicated (systemic symptoms)? @ -Complicated Side effects of treatment? @ -[No] Exacerbation, Progression, or Severe Exacerbation? @ -[No] Poses a threat to life or bodily function? How? (Chest pain, [place], [place], pneumonia, PE, COPD, DKA, ARF, appy, cholecystitis, CVA, Diverticulitis, Homicidal, Suicidal, threat to staff... and all critical care pts) @ -Yes this could lead to [place] which cleaned and oriented dysfunction Diagnosis/symptom? @ -Bradycardia Acute, or Chronic, or Acute on Chronic? @ -Acute Uncomplicated (without systemic symptoms) or Complicated (systemic symptoms)? @ -Complicated Side effects of treatment? @ -[none] Exacerbation, Progression, or Severe Exacerbation] @ -[no] Poses a threat to life or bodily function? @ -Yes this could lead poor perfusion and end organ dysfunction - Lab Data Result diagrams: 10/20/22 09:25 10/20/22 09:25 Lab Results 10/20/22 10/20/22 10/20/22 Range/Units 09:25 09:25 09:25 WBC 6.3 (3.8-10.6) k/uL RBC 4.42 (4.30-5.90) m/uL Hgb 14.2 (13.0-17.5) gm/dL Hct 43.1 (39.0-53.0) % MCV 97.4 (80.0-100.0) fL MCH 32.2 (25.0-35.0) pg MCHC 33.0 (31.0-37.0) g/dL RDW 12.1 (11.5-15.5) % Plt Count 219 (150-450) k/uL MPV 8.5 Neutrophils % 71 % Lymphocytes % 19 % Monocytes % 6 % Eosinophils % 3 % Basophils % 0 % Neutrophils # 4.4 (1.3-7.7) k/uL Lymphocytes # 1.2 (1.0-4.8) k/uL Monocytes # 0.4 (0-1.0) k/uL Eosinophils # 0.2 (0-0.7) k/uL Basophils # 0.0 (0-0.2) k/uL PT 10.0 (9.0-12.0) sec INR 0.9 (<1.2) APTT 20.7 L (22.0-30.0) sec Sodium 139 (137-145) mmol/L Potassium 4.4 (3.5-5.1) mmol/L Chloride 110 H (98-107) mmol/L Carbon Dioxide 22 (22-30) mmol/L Anion Gap 7 mmol/L BUN 17 (9-20) mg/dL Creatinine 0.94 (0.66-1.25) mg/dL Est GFR (CKD-EPI)AfAm >90 (>60 ml/min/1.73 sqM) Est GFR (CKD-EPI)NonAf 79 (>60 ml/min/1.73 sqM) Glucose 132 H (74-99) mg/dL Calcium 8.5 (8.4-10.2) mg/dL Magnesium 2.1 (1.6-2.3) mg/dL Total Bilirubin 0.7 (0.2-1.3) mg/dL AST 26 (17-59) U/L ALT 29 (4-49) U/L Alkaline Phosphatase 76 (38-126) U/L Troponin I (0.000-0.034) ng/mL Total Protein 6.0 L (6.3-8.2) g/dL Albumin 3.6 (3.5-5.0) g/dL 10/20/22 Range/Units 09:25 WBC (3.8-10.6) k/uL RBC (4.30-5.90) m/uL Hgb (13.0-17.5) gm/dL Hct (39.0-53.0) % MCV (80.0-100.0) fL MCH (25.0-35.0) pg MCHC (31.0-37.0) g/dL RDW (11.5-15.5) % Plt Count (150-450) k/uL MPV Neutrophils % % Lymphocytes % % Monocytes % % Eosinophils % % Basophils % % Neutrophils # (1.3-7.7) k/uL Lymphocytes # (1.0-4.8) k/uL Monocytes # (0-1.0) k/uL Eosinophils # (0-0.7) k/uL Basophils # (0-0.2) k/uL PT (9.0-12.0) sec INR (<1.2) APTT (22.0-30.0) sec Sodium (137-145) mmol/L Potassium (3.5-5.1) mmol/L Chloride (98-107) mmol/L Carbon Dioxide (22-30) mmol/L Anion Gap mmol/L BUN (9-20) mg/dL Creatinine (0.66-1.25) mg/dL Est GFR (CKD-EPI)AfAm (>60 ml/min/1.73 sqM) Est GFR (CKD-EPI)NonAf (>60 ml/min/1.73 sqM) Glucose (74-99) mg/dL Calcium (8.4-10.2) mg/dL Magnesium (1.6-2.3) mg/dL Total Bilirubin (0.2-1.3) mg/dL AST (17-59) U/L ALT (4-49) U/L Alkaline Phosphatase (38-126) U/L Troponin I <0.012 (0.000-0.034) ng/mL Total Protein (6.3-8.2) g/dL Albumin (3.5-5.0) g/dL Disposition Clinical Impression: Bradycardia, Chest pain Disposition: ADMITTED IP TO THIS HOSP Referrals: Troy Lebron MD [Primary Care Provider] - 1-2 days Time of Disposition: 11:17
[2022-10-20 09:37] LABS: Basophils % (A) 0 %; Eosinophils # (A) 0.2 k/uL (0-0.7); Eosinophils % (A) 3 %; HCT 43.1 % (39.0-53.0); HGB 14.2 gm/dL (13.0-17.5); Lymphocytes # (A) 1.2 k/uL (1.0-4.8); Lymphocytes % (A) 19 %; MCH 32.2 pg (25.0-35.0); MCV 97.4 fL (80.0-100.0); Mean Platelet Volume 8.5; Monocytes # (A) 0.4 k/uL (0-1.0); Monocytes % (A) 6 %; Neutrophils # (A) 4.4 k/uL (1.3-7.7); Neutrophils % (A) 71 %; Platelet Count 219 k/uL (150-450); RBC 4.42 m/uL (4.30-5.90); RDW 12.1 % (11.5-15.5); WBC 6.3 k/uL (3.8-10.6)
[2022-10-20 09:52] LABS: ALT 29 U/L (4-49); AST 26 U/L (17-59); African American GFR (CKD) >90 (>60 ml/min/1.73 sqM); Albumin 3.6 g/dL (3.5-5.0); Alkaline Phosphatase 76 U/L (38-126); Anion Gap 7 mmol/L; Blood Urea Nitrogen 17 mg/dL (9-20); Calcium 8.5 mg/dL (8.4-10.2); Carbon Dioxide 22 mmol/L (22-30); Chloride 110 mmol/L (98-107); Glucose 132 mg/dL (74-99); INR 0.9 (<1.2); Magnesium 2.1 mg/dL (1.6-2.3); Non-African American GFR(CKD) 79 (>60 ml/min/1.73 sqM); Potassium 4.4 mmol/L (3.5-5.1); Sodium 139 mmol/L (137-145); Total Bilirubin 0.7 mg/dL (0.2-1.3)
--- NOTE | 2022-10-20 10:07 | XR ---
EXAMINATION TYPE: XR chest 2V DATE OF EXAM: 10/20/2022 10:01 AM COMPARISON: Chest radiographs from 09/28/2022 TECHNIQUE: XR chest 2V Frontal and lateral views of the chest. CLINICAL INDICATION:Male, 76 years old with history of Chest Pain; FINDINGS: Lungs/Pleura: There is no evidence of pleural effusion, focal consolidation, or pneumothorax. Pulmonary vascularity: Unremarkable. Heart/mediastinum: Cardiomediastinal silhouette is unremarkable. Atherosclerotic calcifications are seen in the aorta. Musculoskeletal: No acute osseous pathology. IMPRESSION: No acute cardiopulmonary disease/process.
[2022-10-20 10:24] LABS: Partial Thromboplastin Time 20.7 sec (22.0-30.0)
[2022-10-20] MEDS ORDERED: NITROGLYCERIN SL TABS 0.4 MG TAB SUBLINGUAL PRN ×3 (11:17→14:10)
[2022-10-20] MEDS: NITROGLYCERIN OINT 1 INCH/GM PACKET TOPICAL SCH ×3 (12:09→23:37)
[2022-10-20] MEDS ORDERED: ALPRAZolam 0.25 MG TAB PO PRN (13:40)
[2022-10-20] MEDS ORDERED: ALPRAZolam 0.5 MG TAB PO PRN (13:40)
--- NOTE | 2022-10-20 14:08 | P.HPIM ---
History of Present Illness 76-year-old male who was sent in from cardiology office after he became diaphoretic and symptomatic during stress test patient does have history of coronary disease patient was also bradycardic and patient is on beta tammy at home. Patient denied any symptoms at this time. Troponins were negative EKG did not show any acute ST-T wave changes. Chest x-ray within normal limits. REVIEW OF SYSTEMS: CONSTITUTIONAL: No fever, no malaise, no fatigue. HEENT: No recent visual problems or hearing problems. Denied any sore throat. CARDIOVASCULAR: No chest pain, orthopnea, PND, no palpitations, no syncope. PULMONARY: No shortness of breath, no cough, no hemoptysis. GASTROINTESTINAL: No diarrhea, no nausea, no vomiting, no abdominal pain. NEUROLOGICAL: No headaches, no weakness, no numbness. HEMATOLOGICAL: Denies any bleeding or petechiae. GENITOURINARY: Denies any burning micturition, frequency, or urgency. MUSCULOSKELETAL/RHEUMATOLOGICAL: Denies any joint pain, swelling, or any muscle pain. ENDOCRINE: Denies any polyuria or polydipsia. The rest of the 14-point review of systems is negative. PHYSICAL EXAMINATION: GENERAL: The patient is alert and oriented x3, not in any acute distress. Well developed, well nourished. HEENT: Pupils are round and equally reacting to light. EOMI. No scleral icterus. No conjunctival pallor. Normocephalic, atraumatic. No pharyngeal erythema. No thyromegaly. CARDIOVASCULAR: S1 and S2 present. No murmurs, rubs, or gallops. PULMONARY: Chest is clear to auscultation, no wheezing or crackles. ABDOMEN: Soft, nontender, nondistended, normoactive bowel sounds. No palpable organomegaly. MUSCULOSKELETAL: No joint swelling or deformity. EXTREMITIES: No cyanosis, clubbing, or pedal edema. NEUROLOGICAL: Gross neurological examination did not reveal any focal deficits. SKIN: No rashes. Assessment and plan -Possible unstable angina: Cardiology evaluation, patient will continue to IV heparin, statin. -Sinus bradycardia: I symptomatic, secondary to beta tammy which will be held -Coronary artery disease stents in the past -Hypertension -Asthma -Hyperlipidemia -Sleep apnea on CPAP machine DVT prophylaxis: On anticoagulation as mentioned above Past Medical History Past Medical History: Asthma, Cancer, Hyperlipidemia, Hypertension, Myocardial Infarction ([place]), Osteoarthritis ([place]), Pneumonia, Skin Disorder, Sleep Apnea/C PAP/BIPAP, Syncope Additional Past Medical History / Comment(s): Prostate cancer with surgery, skin cancer with removals, KATJA with bipap, pneumonia as a 4 yr old, seasonal all ergies, arthritis in bilateral knees and hands. History of Any Multi-Drug Resistant Organisms: None Reported Past Surgical History: Heart Catheterization With Stent, Hernia Repair, Orthopedic Surgery, Prostate Surgery Additional Past Surgical History / Comment(s): Robotic prostatectomy, R tennis elbow, bilateral knee arthroscopies, umbilical hernia repair, incisional hernia repair, skin cancer removals, colonoscopy, sinus surgery. Past Anesthesia/Blood Transfusion Reactions: Postoperative Nausea & Vomiting (PONV) Past Psychological History: Depression Smoking Status: Former smoker Past Alcohol Use History: Occasional Past Drug Use History: None Reported - Past Family History Brother(s) Family Medical History: Cancer Additional Family Medical History / Comment(s): Nonhodgkins lymphoma, methothelioma Mother Family Medical History: Cancer Additional Family Medical History / Comment(s): breast cancer. Father Family Medical History: Vascular Disorder Additional Family Medical History / Comment(s): Father had vascular disease. He was a smoker. Medications and Allergies Home Medications Medication Instructions Recorded Confirmed Type Montelukast Sodium [Singulair] 10 mg PO DAILY 03/17/16 10/20/22 History Aspirin 81 mg PO DAILY #30 chewable 01/26/19 10/20/22 Rx Atorvastatin [Lipitor] 80 mg PO DAILY #90 tab 01/26/19 10/20/22 Rx Nitroglycerin Sl Tabs [Nitrostat] 0.4 mg SUBLINGUAL Q5M PRN #100 tab 01/26/19 10/20/22 Rx Isosorbide Mononitrate [Isosorbide 30 mg PO DAILY 11/10/20 10/20/22 History Mononitrate ER] Triamcinolone 0.1% Cream [Kenalog 1 applic TOPICAL BID PRN 11/10/20 10/20/22 History 0.1% Cream] Ascorbic Acid [Vitamin C] 1,000 mg PO DAILY 10/20/22 10/20/22 History Cetirizine HCl [Zyrtec] 10 mg PO DAILY 10/20/22 10/20/22 History Cholecalciferol (Vitamin D3) 75 mcg PO DAILY 10/20/22 10/20/22 History [Vitamin D3 (3000 Iu)] Metoprolol Tartrate 25 mg PO DAILY 10/20/22 10/20/22 History Mometasone Furoate [Asmanex 220 1 puff INHALATION RT-DAILY 10/20/22 10/20/22 History MCG] Nasal [place] (Unknown) 1 spray EA NOSTRIL DAILY 10/20/22 10/20/22 History Zinc Gluconate [Zinc] 50 mg PO DAILY 10/20/22 10/20/22 History buPROPion XL [Wellbutrin XL] 300 mg PO DAILY 10/20/22 10/20/22 History Allergies Allergy/AdvReac Type Severity Reaction Status Date / Time fluticasone Allergy Rash/Hives Verified 10/20/22 10:19 [From Advair Diskus] salmeterol Allergy Rash/Hives Verified 10/20/22 10:19 [From Advair Diskus] Physical Exam Vitals: Vital Signs Temp Pulse Pulse Resp BP Pulse Ox 10/20/22 12:10 48 L 18 133/89 97 10/20/22 11:00 47 L 20 134/70 98 10/20/22 10:17 48 L 20 134/75 98 10/20/22 09:17 45 L 45 L 20 125/86 100 10/20/22 09:13 97.2 F L 47 L 16 125/86 Intake and Output 10/19/22 10/20/22 10/20/22 22:59 06:59 14:59 Other: Weight 97.522 kg Results CBC & Chem 7: 10/20/22 09:25 10/20/22 09:25 Labs: Abnormal Lab Results - Last 24 Hours (Table) 10/20/22 10/20/22 Range/Units 09:25 09:25 APTT 20.7 L (22.0-30.0) sec Chloride 110 H (98-107) mmol/L Glucose 132 H (74-99) mg/dL Total Protein 6.0 L (6.3-8.2) g/dL
[2022-10-20] MEDS ORDERED: TRIAMCINOLONE 0.1% CREAM 80 GM TUBE TOPICAL PRN (14:10)
--- NOTE | 2022-10-20 14:11 | P.CRDCN ---
History of Present Illness History of present illness: HISTORY OF PRESENT ILLNESS: This is a 76-year-old male with a past medical history significant for coronary artery disease with previous stenting to the distal RCA in 2019, hypertension, and hyperlipidemia. Patient follows in the office with Dr. Plata. We have be en asked to see the patient in consultation for chest pain. Patient examined at the bedside. Patient states that he recently saw Dr. Plata at the end of August. He was at the cardiology office this morning for a Lexiscan stress test. He states that he received his injection and his first set of pictures when he became diaphoretic, nauseated, and began experiencing chest pain. He was sent to the emergency room via EMS for further evaluation. At the time of examination, patient denies chest pain or pressure. He denies shortness of breath. Telemetry reveals sinus bradycardia. Blood pressure is stable. * EKG reveals sinus bradycardia with no signs of acute ischemia * Chest xray negative for acute process * Laboratory data: WBC 6.3. Hemoglobin 14.2. Platelet count 219. Sodium 139. Potassium 4.4. BUN 17. Creatinine 0.94. Troponin negative 2 * Current home cardiac medications include Imdur 30 mg daily, metoprolol tartrate 25 mg daily, aspirin 81 mg daily, Lipitor 80 mg daily * Most recent echocardiogram obtained in November 2021 revealed ejection fraction 55%, trace aortic regurgitation, mild mitral regurgitation, mild tricuspid regurgitation * Cardiac catheterization history: January 2019 with stenting to the distal RCA REVIEW OF SYSTEMS: At the time of my exam: CONSTITUTIONAL: Denies fever or chills. HEENT: Denies blurred vision, vision changes, or eye pain. Denies hemoptysis CARDIOVASCULAR: Denies chest pain. Denies orthopnea. Denies PND. Denies palpitations RESPIRATORY: Denies shortness of breath. GASTROINTESTINAL: Denies abdominal pain. Denies nausea or vomiting. HEMATOLOGIC: Denies bleeding disorders. GENITOURINARY: Denies any blood in urine. SKIN: Denies pruitis. Denies rash. PHYSICAL EXAM: VITAL SIGNS: Reviewed. GENERAL: Well-developed in no acute distress. HEENT: Head is normocephalic. Pupils are equal, round. Sclerae anicteric. Mucous membranes of the mouth are moist. Neck supple. No JVD or thyromegaly LUNGS: Respirations even and unlabored. Lungs essentially clear to auscultation bilaterally. HEART: Regular rate and rhythm. S1 and S2 heard. ABDOMEN: Soft. Nondistended. Nontender. EXTREMITIES: Normal range of motion. No clubbing or cyanosis. Peripheral pulses intact. No lower extremity edema NEUROLOGIC: Awake and alert. Oriented x 3. ASSESSMENT: Unstable angina Sinus bradycardia Coronary artery disease with previous stenting to the distal RCA, 2019 Hypertension Hyperlipidemia PLAN: Continue to trend troponins Resume home cardiac medications Hold beta tammy at this time secondary to bradycardia Begin IV heparin Nothing by mouth at midnight Patient to undergo cardiac catheterization tomorrow with Dr. Barkley Further recommendations pending patient course Nurse practitioner note has been reviewed by physician. Signing provider agrees with the documented findings, assessment, and plan of care. Past Medical History Past Medical History: Asthma, Cancer, Hyperlipidemia, Hypertension, Myocardial Infarction ([place]), Osteoarthritis (OA), Pneumonia, Skin Disorder, Sleep Apnea/CPAP/BIPAP, Syncope Additional Past Medical History / Comment(s): Prostate cancer with surgery, skin cancer with removals, KATJA with bipap, pneumonia as a 4 yr old, seasonal allergies, arthritis in bilateral knees and hands. History of Any Multi-Drug Resistant Organisms: None Reported Past Surgical History: Heart Catheterization With Stent, Hernia Repair, Orthopedic Surgery, Prostate Surgery Additional Past Surgical History / Comment(s): Robotic prostatectomy, R tennis elbow, bilateral knee arthroscopies, umbilical hernia repair, incisional hernia repair, skin cancer removals, colonoscopy, sinus surgery. Past Anesthesia/Blood Transfusion Reactions: Postoperative Nausea & Vomiting (PONV) Past Psychological History: Depression Smoking Status: Former smoker Past Alcohol Use History: Occasional Past Drug Use History: None Reported - Past Family History Brother(s) Family Medical History: Cancer Additional Family Medical History / Comment(s): Nonhodgkins lymphoma, methothelioma Mother Family Medical History: Cancer Additional Family Medical History / Comment(s): breast cancer. Father Family Medical History: Vascular Disorder Additional Family Medical History / Comment(s): Father had vascular disease. He was a smoker. Medications and Allergies Home Medications Medication Instructions Recorded Confirmed Type Montelukast Sodium [Singulair] 10 mg PO DAILY 03/17/16 10/20/22 History Aspirin 81 mg PO DAILY #30 chewable 01/26/19 10/20/22 Rx Atorvastatin [Lipitor] 80 mg PO DAILY #90 tab 01/26/19 10/20/22 Rx Nitroglycerin Sl Tabs [Nitrostat] 0.4 mg SUBLINGUAL Q5M PRN #100 tab 01/26/19 10/20/22 Rx Isosorbide Mononitrate [Isosorbide 30 mg PO DAILY 11/10/20 10/20/22 History Mononitrate ER] Triamcinolone 0.1% Cream [Kenalog 1 applic TOPICAL BID PRN 11/10/20 10/20/22 History 0.1% Cream] Ascorbic Acid [Vitamin C] 1,000 mg PO DAILY 10/20/22 10/20/22 History Cetirizine HCl [Zyrtec] 10 mg PO DAILY 10/20/22 10/20/22 History Cholecalciferol (Vitamin D3) 75 mcg PO DAILY 10/20/22 10/20/22 History [Vitamin D3 (3000 Iu)] Metoprolol Tartrate 25 mg PO DAILY 10/20/22 10/20/22 History Mometasone Furoate [Asmanex 220 1 puff INHALATION RT-DAILY 10/20/22 10/20/22 History MCG] Nasal Ramsay (Unknown) 1 spray EA NOSTRIL DAILY 10/20/22 10/20/22 History Zinc Gluconate [Zinc] 50 mg PO DAILY 10/20/22 10/20/22 History buPROPion XL [Wellbutrin XL] 300 mg PO DAILY 10/20/22 10/20/22 History Allergies Allergy/AdvReac Type Severity Reaction Status Date / Time fluticasone Allergy Rash/Hives Verified 10/20/22 10:19 [From Advair Diskus] salmeterol Allergy Rash/Hives Verified 10/20/22 10:19 [From Advair Diskus] Physical Exam Vitals: Vital Signs Temp Pulse Pulse Resp BP Pulse Ox 10/20/22 12:10 48 L 18 133/89 97 10/20/22 11:00 47 L 20 134/70 98 10/20/22 10:17 48 L 20 134/75 98 10/20/22 09:17 45 L 45 L 20 125/86 100 10/20/22 09:13 97.2 F L 47 L 16 125/86 Intake and Output 10/19/22 10/20/22 10/20/22 22:59 06:59 14:59 Other: Weight 97.522 kg Results 10/20/22 09:25 10/20/22 09:25 Cardiac Enzymes 10/20/22 10/20/22 10/20/22 Range/Units 09:25 09:25 11:40 AST 26 (17-59) U/L Troponin I <0.012 <0.012 (0.000-0.034) ng/mL Coagulation 10/20/22 Range/Units 09:25 PT 10.0 (9.0-12.0) sec APTT 20.7 L (22.0-30.0) sec CBC 10/20/22 Range/Units 09:25 WBC 6.3 (3.8-10.6) k/uL RBC 4.42 (4.30-5.90) m/uL Hgb 14.2 (13.0-17.5) gm/dL Hct 43.1 (39.0-53.0) % Plt Count 219 (150-450) k/uL Comprehensive Metabolic Panel 10/20/22 Range/Units 09:25 Sodium 139 (137-145) mmol/L Potassium 4.4 (3.5-5.1) mmol/L Chloride 110 H (98-107) mmol/L Carbon Dioxide 22 (22-30) mmol/L BUN 17 (9-20) mg/dL Creatinine 0.94 (0.66-1.25) mg/dL Glucose 132 H (74-99) mg/dL Calcium 8.5 (8.4-10.2) mg/dL AST 26 (17-59) U/L ALT 29 (4-49) U/L Alkaline Phosphatase 76 (38-126) U/L Total Protein 6.0 L (6.3-8.2) g/dL Albumin 3.6 (3.5-5.0) g/dL Current Medications Generic Name Dose Route Start Last Admin Trade Name Freq PRN Reason Stop Dose Admin Aspirin 325 mg 10/21/22 09:00 Aspirin 325 Mg Tab PO DAILY CHARAN Nitroglycerin 0.4 mg 10/20/22 11:17 Nitroglycerin Sl Tabs 0.4 Mg Tab SUBLINGUAL Q5M PRN Chest Pain Nitroglycerin 1 inch 10/20/22 13:00 10/20/22 12:09 Nitroglycerin Oint 1 Inch/Gm Packet TOPICAL Not Given Q6HR CHARAN Intake and Output 10/19/22 10/20/22 10/20/22 22:59 06:59 14:59 Other: Weight 97.522 kg Patient Weight 10/21/22 06:59 Weight 97.522 kg 10/20/22 09:25 10/20/22 09:25
[2022-10-20] MEDS ORDERED: HEPARIN SODIUM 1,000 UN/ML (10ML VL) IV PRN (14:12)
[2022-10-20] MEDS ORDERED: HEPARIN SODIUM 1,000 UN/ML (10ML VL) IV ONE (14:30)
[2022-10-20] MEDS ORDERED: HEPARIN SOD,PORK IN 0.45% NACL 25,000 UNIT in 0.45% NACL 1 250ML.BAG IV SCH (14:30)
[2022-10-20 14:50] LABS: Basophils % (A) 1 %; Eosinophils # (A) 0.2 k/uL (0-0.7); Eosinophils % (A) 3 %; HCT 43.8 % (39.0-53.0); HGB 14.2 gm/dL (13.0-17.5); Lymphocytes # (A) 1.2 k/uL (1.0-4.8); Lymphocytes % (A) 21 %; MCHC 32.5 g/dL (31.0-37.0); MCV 98.6 fL (80.0-100.0); Mean Platelet Volume 8.3; Monocytes # (A) 0.3 k/uL (0-1.0); Monocytes % (A) 6 %; Neutrophils # (A) 4.1 k/uL (1.3-7.7); Neutrophils % (A) 70 %; Platelet Count 194 k/uL (150-450); RBC 4.44 m/uL (4.30-5.90); RDW 12.2 % (11.5-15.5); WBC 5.9 k/uL (3.8-10.6)
[2022-10-20 15:08] LABS: Prothrombin Time 10.2 sec (9.0-12.0)
[2022-10-20 15:23] LABS: Partial Thromboplastin Time 21.1 sec (22.0-30.0)
[2022-10-20] MEDS: SODIUM CHLORIDE 0.9% 1,000 ML in EMPTY BAG 1 BAG IV SCH (23:40)
[2022-10-21 04:40] LABS: Basophils % (A) 1 %; Eosinophils # (A) 0.2 k/uL (0-0.7); Eosinophils % (A) 3 %; HCT 40.8 % (39.0-53.0); HGB 13.4 gm/dL (13.0-17.5); Lymphocytes # (A) 1.8 k/uL (1.0-4.8); Lymphocytes % (A) 24 %; MCH 32.4 pg (25.0-35.0); MCHC 32.8 g/dL (31.0-37.0); MCV 98.8 fL (80.0-100.0); Mean Platelet Volume 8.6; Monocytes # (A) 0.6 k/uL (0-1.0); Monocytes % (A) 8 %; Neutrophils # (A) 4.7 k/uL (1.3-7.7); Neutrophils % (A) 63 %; Platelet Count 180 k/uL (150-450); RBC 4.13 m/uL (4.30-5.90); RDW 12.1 % (11.5-15.5); WBC 7.5 k/uL (3.8-10.6)
[2022-10-21] MEDS ORDERED: ATORVASTATIN 80 MG TAB PO ONE (05:00)
[2022-10-21] MEDS ORDERED: ASPIRIN 325 MG TAB PO ONE (05:00)
[2022-10-21 05:03] LABS: Prothrombin Time 10.8 sec (9.0-12.0)
[2022-10-21] MEDS: NITROGLYCERIN OINT 1 INCH/GM PACKET TOPICAL SCH (05:12)
[2022-10-21] MEDS: ASPIRIN 81 MG PO SCH (05:18)
[2022-10-21] MEDS: ATORVASTATIN 80 MG TAB PO SCH (05:18)
[2022-10-21] MEDS: MOMETASONE FUROATE 220 MCG INHALATION SCH (05:18)
[2022-10-21] MEDS: buPROPion XL 300 MG TAB.ER.24H PO SCH (06:25)
[2022-10-21] MEDS ORDERED: HEPARIN SODIUM,PORCINE 2,500 UNIT in SODIUM CHLORIDE 0.9% 250 ML IRRIGATION PRN (07:00)
[2022-10-21] MEDS ORDERED: HEPARIN SODIUM,PORCINE 10,000 UNIT in SODIUM CHLORIDE 0.9% 1,000 ML IRRIGATION PRN (07:00)
[2022-10-21] MEDS ORDERED: VERAPAMIL 2.5 MG/ML 2 ML AMP ONE (07:48)
[2022-10-21] MEDS ORDERED: HEPARIN SODIUM 1,000 UN/ML (10ML VL) ONE (08:16)
[2022-10-21] MEDS ORDERED: fentaNYL (PF) 50 MCG/ML 2 ML AMP ONE (08:17)
[2022-10-21] MEDS ORDERED: IV FLUID CONTINUATION 1,000 ML IV ONE (08:20)
[2022-10-21] MEDS ORDERED: MIDAZOLAM 2 MG/2 ML VIAL IV ONE (08:29)
[2022-10-21] MEDS: fentaNYL (PF) 50 MCG/ML 2 ML AMP IV ONE ×2 (08:29→08:38)
[2022-10-21] MEDS ORDERED: LIDOCAINE 1% INJ 10MG/ML (5 ML VIAL-PF) SQ ONE (08:32)
[2022-10-21] MEDS ORDERED: LIDOCAINE 1% INJ 10MG/ML (20 ML MDV) ONE (08:40)
[2022-10-21] MEDS ORDERED: LIDOCAINE 1% INJ 10MG/ML (20 ML MDV) SQ ONE (08:44)
[2022-10-21] MEDS ORDERED: ASPIRIN 325 MG TAB PO SCH (09:00)
[2022-10-21] MEDS ORDERED: ISOSORBIDE MONONITRATE ER 30 MG TAB.ER.24H PO SCH (09:00)
[2022-10-21 09:07] LABS: Chol/HDL Ratio 2.65 Ratio; LDL Cholesterol,Calculated 64.9 mg/dL (0.0-131.0); VLDL Calculation 10.48 mg/dL (5.00-40.00)
[2022-10-21] MEDS ORDERED: SODIUM CHLORIDE 0.9% 1,000 ML IV ONE (09:21)
[2022-10-21] MEDS ORDERED: IOPAMIDOL-370 100ML BTL INJ ONE (09:21)
[2022-10-21] MEDS ORDERED: RX INFO: IV CONTRAST WAS GIVEN 1 EACH MISC MISCELLANE PRN (09:39)
[2022-10-21] MEDS: SODIUM CHLORIDE 0.9% 1,000 ML IV SCH ×2 (09:47→22:54)
[2022-10-21] MEDS: SODIUM CHLORIDE 0.9% 1,000 ML in EMPTY BAG 1 BAG IV SCH ×3 (09:48→22:55)
--- NOTE | 2022-10-21 10:11 | CC ---
CARDIAC CATHETERIZATION REPORT INDICATION: Unstable angina in a patient with known CAD, status post prior angioplasty of the distal right coronary artery. PROCEDURE NOTE: After obtaining informed consent, left heart catheterization and coronary angiogram were performed via the right femoral artery using standard Libby catheters. The patient tolerated the procedure well without any obvious immediate complications. The patient received moderate conscious sedation. Total sedation time was 30 minutes. A femoral angiogram was performed, and Angio-Seal was deployed for hemostasis. I initially attempted right radial artery access and was unsuccessful; hence, I proceeded with the femoral catheterization. FINDINGS: 1. HEMODYNAMICS: Left ventricular end-diastolic pressure is 18 mmHg. There is no significant gradient across the aortic valve. 2. LEFT VENTRICULOGRAM: Left ventriculogram is not performed. 3. ANGIOGRAPHIC DATA: a.Left main coronary artery: Left main coronary artery is a normal-sized vessel that is free of stenosis. Divides into left anterior descending coronary artery and circumflex coronary artery. LAD and its branches and circumflex coronary artery and its branches are free of significant stenosis. LAD shows a mild atherosclerotic plaque in the proximal portion, which at its worst seems to be a 30% to 40% stenosis. b.Right coronary artery is a large dominant vessel. The previously-stented distal RCA appears patent. CONCLUSIONS: Patent stent within the distal right coronary artery. Mild nonobstructive disease involving LAD. PLAN: The exact etiology for the symptoms that the patient had yesterday while he was waiting for stress test is unclear. We will treat him with optimal medical therapy and current medical therapy including aspirin, beta-blockers, nitrates, and statin. MMODL / IJN: [id number] /
--- NOTE | 2022-10-21 10:41 | CA ---
Transthoracic Echo Report Name: Stefan Cervantes Age: 76 Gender: M : 1945 Exam Date: 10/21/2022 07:30 Exam Location: [facility] Ht (in): 71 Wt (lb): 215 Ordering Physician: Tiffany Scherer Attending/Referring Phys: [id number], Gilmer Brim Stiffener Thai Rankin Procedure CPT: Indications: LV function, CP Cardiac Hx: Technical Quality: Fair Contrast 1: Total Dose (mL): Contrast 2: Total Dose (mL): MEASUREMENTS (Male / Female) Normal Values 2D ECHO LV Diastolic Diameter PLAX 5.6 cm 4.2 - 5.9 / 3.9 - 5.3 cm LV Systolic Diameter PLAX 3.1 cm IVS Diastolic Thickness 1.1 cm 0.6 - 1.0 / 0.6 - 0.9 cm LVPW Diastolic Thickness 1.2 cm 0.6 - 1.0 / 0.6 - 0.9 cm LV Relative Wall Thickness 0.4 RV Internal Dim ED PLAX 3.2 cm LVOT Diameter 2.3 cm Aortic Root Diameter 3.2 cm LA Systolic Diameter LX 3.1 cm 3.0 - 4.0 / 2.7 - 3.8 cm LV Diastolic Volume MOD BP 45.0 cm??? 67 - 155 / 56 - 104 cm??? LV Systolic Volume MOD BP 10.9 cm??? 22 - 58 / 19 - 49 cm??? LV Ejection Fraction MOD BP 75.8 % >= 55 % LV Diastolic Volume MOD 4C 54.9 cm??? LV Systolic Volume MOD 4C 17.5 cm??? LV Ejection Fraction MOD 4C 68.2 % LV Diastolic Length 4C 6.9 cm LV Systolic Length 4C 5.8 cm LV Diastolic Volume MOD 2C 36.3 cm??? LV Systolic Volume MOD 2C 6.3 cm??? LV Ejection Fraction MOD 2C 82.7 % LV Diastolic Length 2C 6.7 cm LV Systolic Length 2C 5.3 cm LA Volume 55.5 cm??? 18 - 58 / 22 - 52 cm??? DOPPLER AV Peak Velocity 145.0 cm/s AV Peak Gradient 8.4 mmHg LVOT Peak Velocity 99.2 cm/s LVOT Peak Gradient 3.9 mmHg AV Area Cont Eq pk 2.7 cm??? MR Peak Velocity 331.5 cm/s MR Peak Gradient 44.0 mmHg Mitral E Point Velocity 85.8 cm/s Mitral A Point Velocity 68.2 cm/s Mitral E to A Ratio 1.3 MV Deceleration Time 193.9 ms TR Peak Velocity 257.3 cm/s TR Peak Gradient 26.5 mmHg Right Ventricular Systolic Press 31.7 mmHg FINDINGS Left Ventricle Left ventricular ejection fraction is estimated at 55 %. Normal LV size. .Mildly increased septal wall thickness. Right Ventricle Normal right ventricular size and function. Right Atrium Normal right atrial size. Left Atrium Normal left atrial size. Mitral Valve Structurally normal mitral valve. Mild posterior MAC. Mild MR. Aortic Valve Trileaflet aortic valve. Mild AV Sclerosis/Calcification.no aortic valve stenosis or regurgitation. Tricuspid Valve Structurally normal tricuspid valve. Trace TR. RVSP= 27mmhg. Pulmonic Valve Pulmonic valve not well visualized. Mild PI. Pericardium Normal pericardium. Aorta Normal size aortic root and proximal ascending aorta. CONCLUSIONS Normal LV size and systolic function with mild concentric LVH. Mild mitral annular calcification. Mild mitral and tricuspid regurgitation. No pulmonary hypertension no pericardial effusion Previewed by: Dr. Reginald Aleman MD (Electronically Signed) Final Date: 21 October 2022 10:40
[2022-10-21] MEDS: ISOSORBIDE MONONITRATE ER 30 MG TAB.ER.24H PO SCH (17:36)
--- NOTE | 2022-10-22 05:35 | P.PN ---
Subjective Progress Note Date: 10/21/22 76-year-old male who was sent in from cardiology office after he became diaphoretic and symptomatic during stress test patient does have history of coronary disease patient was also bradycardic and patient is on beta tammy at home. Patient denied any symptoms at this time. Troponins were negative EKG did not show any acute ST-T wave changes. Chest x-ray within normal limits. 10/21/2022 Patient seen and evaluated in follow-up today and currently on bedrest as patient just underwent cardiac catheterization with cardiology following closely. Recommend continue telemetry monitoring and monitoring overnight. Beta blockers remain on hold with cardiology to adjust medications. Cardiology is recommending maximizing medical management and close outpatient follow-up. Encouraged the patient to increase activity as tolerated once of bed rest and monitor closely for any signs of dizziness, arrhythmias, chest pain. Per nursing staff patient reported some chest tightness post cardiac catheterization which is being monitored. Patient is afebrile with no reports of nausea or vomiting noted. Patient able to tolerate diet after procedure. Patient is currently on room air with no reports of shortness of breath. Review of systems: Constitutional: No reports of fatigue, fever, or chills Cardiovascular: reports of chest pressure, denies palpitations Respiratory: No reports of shortness of breath or cough GI: No reports of nausea, vomiting, or diarrhea : No reports of dysuria or retention Neurovascular: No reports of weakness or numbness All medications have been reviewed PHYSICAL EXAMINATION: GENERAL: The patient is alert and oriented x3, not in any acute distress. Well developed, well nourished. Obese. HEENT: Pupils are round and equally reacting to light. EOMI. No scleral icterus. No conjunctival pallor. Normocephalic, atraumatic. No pharyngeal erythema. No thyromegaly. CARDIOVASCULAR: S1 and S2 present. No murmurs, rubs, or gallops. PULMONARY: Chest is clear to auscultation, no wheezing or crackles. ABDOMEN: Soft, nontender, nondistended, normoactive bowel sounds. No palpable organomegaly. MUSCULOSKELETAL: No joint swelling or deformity. EXTREMITIES: No cyanosis, clubbing, or pedal edema. NEUROLOGICAL: Gross neurological examination did not reveal any focal deficits. SKIN: No rashes. Assessment and plan -Possible unstable angina: Cardiology evaluation, patient will continue to IV heparin, statin. -Sinus bradycardia, symptomatic, secondary to beta tammy which will be held -Coronary artery disease stents in the past -Hypertension -Asthma -Hyperlipidemia -Sleep apnea on CPAP machine -DVT prophylaxis: On anticoagulation as mentioned above Plan: Patient is status post cardiac catheterization with cardiology following recognizing maximizing medical management with no intervention at this time and previous stents are patent Recommend continue telemetry monitoring for another 24 hours and will discuss further with cardiology when stable for discharge planning continue to hold beta tammy at this time Possible discharge in the next 24 hours The impression and plan of care has been dictated by Petty Block, Nurse Practitioner as directed. Dr. Cristhian MD I have performed a history and examination and MDM of this patient, discussed the same with the dictator, and agree with the dictator's assessment and plan as written ,documented as a scribe. Based on total visit time, I have performed more than 50% of the visit. Objective - Vital Signs Vital signs: Vital Signs Temp 97.9 F 10/21/22 04:00 Pulse 54 L 10/21/22 04:00 Resp 16 10/21/22 04:00 BP 137/79 10/21/22 04:00 Pulse Ox 98 10/21/22 04:00 FiO2 Intake & Output 10/20/22 10/21/22 10/21/22 18:59 06:59 18:59 Intake Total 449 200 Balance 449 200 Weight 97.522 kg Intake: IV 200 Intake, IV Titration 449 Amount Heparin Sod,Pork in 0.45% 61 NaCl 25,000 unit In 0.45 % NaCl 1 250ml.bag @ 10. 254 UNITS/KG/HR 10 mls/hr IV .Q24H CHARAN Rx#: [id number] Sodium Chloride 0.9% 1, 388 000 ml In Empty Bag 1 bag @ 1 ML/KG/HR 97.522 mls/ hr IV .[id number] CHARAN Rx#: [id number] Other: Voiding Method Toilet # Voids 1 - Labs CBC & Chem 7: 10/21/22 03:34 10/20/22 09:25 Labs: Abnormal Lab Results - Last 24 Hours (Table) 10/20/22 10/20/22 10/20/22 Range/Units 09:25 09:25 14:21 RBC (4.30-5.90) m/uL APTT 20.7 L 21.1 L (22.0-30.0) sec Chloride 110 H (98-107) mmol/L Glucose 132 H (74-99) mg/dL Total Protein 6.0 L (6.3-8.2) g/dL 10/20/22 10/21/22 10/21/22 Range/Units 19:47 03:34 03:34 RBC 4.13 L (4.30-5.90) m/uL APTT 37.4 H 57.9 H (22.0-30.0) sec Chloride (98-107) mmol/L Glucose (74-99) mg/dL Total Protein (6.3-8.2) g/dL
[2022-10-22] MEDS: ISOSORBIDE MONONITRATE ER 30 MG TAB.ER.24H PO SCH (05:46)
[2022-10-22 07:42] VITALS: TEMP 97.8
[2022-10-22] MEDS: MOMETASONE FUROATE 220 MCG INHALATION SCH (09:11)
[2022-10-22] MEDS: buPROPion XL 300 MG TAB.ER.24H PO SCH (09:12)
[2022-10-22] MEDS: ASPIRIN 81 MG PO SCH (09:12)
[2022-10-22] MEDS: ATORVASTATIN 80 MG TAB PO SCH (09:12)
--- NOTE | 2022-10-22 10:36 | P.PN ---
Subjective HISTORY OF PRESENT ILLNESS: This is a 76-year-old male with a past medical history significant for coronary artery disease with previous stenting to the distal RCA in 2019, hypertension, and hyperlipidemia. Patient follows in the office with Dr. Plata. We have been asked to see the patient in consultation for chest pain. Patient examined at the bedside. Patient states that he recently saw Dr. Plata at the end of August. He was at the cardiology office this morning for a Lexiscan stress test. He states that he received his injection and his first set of pictures when he became diaphoretic, nauseated, and began experiencing chest pain. He was sent to the emergency room via EMS for further evaluation. At the time of examination, patient denies chest pain or pressure. He denies shortness of breath. Telemetry reveals sinus bradycardia. Blood pressure is stable. * EKG reveals sinus bradycardia with no signs of acute ischemia * Chest xray negative for acute process * Laboratory data: WBC 6.3. Hemoglobin 14.2. Platelet count 219. Sodium 139. Potassium 4.4. BUN 17. Creatinine 0.94. Troponin negative 2 * Current home cardiac medications include Imdur 30 mg daily, metoprolol tartrate 25 mg daily, aspirin 81 mg daily, Lipitor 80 mg daily * Most recent echocardiogram obtained in November 2021 revealed ejection fraction 55%, trace aortic regurgitation, mild mitral regurgitation, mild tricuspid regurgitation * Cardiac catheterization history: January 2019 with stenting to the distal RCA 10/22/2022 Patient is status post cardiac catheterization yesterday revealing patent stent in the distal RCA. Mild nonobstructive disease involving LAD. Patient developed chest pain yesterday afternoon. His oral nitrate was increased. He states he has had no further episodes of chest pain or pressure since that time. He denies shortness of breath. He is sitting up in the chair this morning. He has been up ambulatory without difficulty. He is hoping to be discharged home today. PHYSICAL EXAM: VITAL SIGNS: Reviewed. GENERAL: Well-developed in no acute distress. HEENT: Head is normocephalic. Pupils are equal, round. Sclerae anicteric. Mucous membranes of the mouth are moist. Neck supple. No JVD or thyromegaly LUNGS: Respirations even and unlabored. Lungs essentially clear to auscultation bilaterally. HEART: Regular rate and rhythm. S1 and S2 heard. ABDOMEN: Soft. Nondistended. Nontender. EXTREMITIES: Normal range of motion. No clubbing or cyanosis. Peripheral pulses intact. No lower extremity edema NEUROLOGIC: Awake and alert. Oriented x 3. ASSESSMENT: Unstable angina Sinus bradycardia Coronary artery disease with previous stenting to the distal RCA, 2019 Hypertension Hyperlipidemia PLAN: Continue current cardiac medications Patient is stable for discharge home today from a cardiac standpoint He is to follow-up post discharge with Dr. Plata Nurse practitioner note has been reviewed by physician. Signing provider agrees with the documented findings, assessment, and plan of care. Objective - Vital Signs Vital signs: Vital Signs Temp 97.8 F 10/22/22 07:41 Pulse 55 L 10/22/22 07:42 Resp 17 10/22/22 07:41 BP 130/71 10/22/22 07:41 Pulse Ox 96 10/22/22 09:49 FiO2 Intake & Output 10/21/22 10/22/22 10/22/22 18:59 06:59 18:59 Intake Total 425 360 Output Total 650 Balance -225 360 Intake: IV 200 Intake, IV Titration 225 Amount Sodium Chloride 0.9% 1, 225 000 ml @ 75 mls/hr IV . [id number] [facility] Rx#:[id number] Oral 360 Output: Urine 650 Other: Voiding Method Toilet Toilet Toilet # Voids 1 - Labs CBC & Chem 7: 10/21/22 03:34 10/20/22 09:25
[2022-10-22 11:29] VITALS: BP 134/75; PULSE 49; RESP 15
[2022-10-22] MEDS: SODIUM CHLORIDE 0.9% 1,000 ML IV SCH (11:36)
--- NOTE | 2022-10-23 17:07 | P.DS ---
Providers Date of admission: 10/20/22 11:18 Expected date of discharge: 10/22/22 Attending physician: Gosia Morrow Consults: 10/20/22 11:18 Consult Physician Urgent Consulting Provider: [facility] Consult Reason/Comments: Chest pain, bradycardia Do you want consulting provider notified?: Yes Primary care physician: Troy Lerbon Hospital Course: Final diagnosis -Possible unstable angina: ACS ruled out -Sinus bradycardia, symptomatic, secondary to beta tammy which will be held -Coronary artery disease stents in the past -Hypertension -Asthma -Hyperlipidemia -Sleep apnea on CPAP machine -Obesity with a BMI of 30 -DVT prophylaxis -GI prophylaxis -Full code Discharge disposition Patient is being discharged in a stable condition with guarded prognosis to home. Patient will follow-up with Dr. Lebron in the outpatient setting upon discharge. Patient is to continue with holding beta tammy at this time and close outpatient follow-up with cardiology as scheduled. Total time taken is greater than 35 minutes. Hospital course This is a 76-year-old male who was recently admitted after scheduled to undergo stress test although had dizziness and lightheadedness with some bradycardia and instructed to go to the ER for further evaluation. Patient was evaluated by cardiology who underwent cardiac catheterization recommending maximizing medical management. Patient's beta tammy currently on hold and has been instructed to follow-up with cardiology outpatient early next week. Patient instructed to follow-up with primary care provider as well. Please refer to cardiology notes for further HPI. Patient reports to feeling well and extremely anxious about wanting to go home. Currently no reports of chest pain, shortness of breath, or palpitations. Patient is afebrile. No reports of nausea or vomiting and patient is tolerating diet. Patient will be discharged home today. Physical exam: Gen: This is a 76-year-old male who is awake, alert and oriented 3, well- developed, well-nourished, obese. HEENT: Head is atraumatic, normocephalic. Pupils equal, round. Sclerae is anicteric. NECK: Supple. No JVD. No lymphadenopathy. No thyromegaly. LUNGS: Clear to auscultation. No wheezes or rhonchi. No intercostal retractions. HEART: Regular rate and rhythm. No murmur. ABDOMEN: Soft. Bowel sounds are present. No masses. No tenderness. EXTREMITIES: No pedal edema. No calf tenderness. NEUROLOGICAL: Patient is awake, alert and oriented x3. Cranial nerves 2 through 12 are grossly intact. Please refer to medication reconciliation sheet for a list of medications. The impression and plan of care has been dictated by Petty Block, Nurse Practitioner as directed. Dr. Cristhian MD I have performed a history and examination and MDM of this patient, discussed the same with the dictator, and agree with the dictator's assessment and plan as written ,documented as a scribe. Based on total visit time, I have performed more than 50% of the visit. Patient Condition at Discharge: Fair Plan - Discharge Summary Discharge Rx Participant: No New Discharge Prescriptions: New Isosorbide Mononitrate ER [Imdur] 30 mg PO BID-W/MEALS #60 tab Continue Montelukast Sodium [Singulair] 10 mg PO DAILY Aspirin 81 mg PO DAILY #30 chewable Atorvastatin [Lipitor] 80 mg PO DAILY #90 tab Nitroglycerin Sl Tabs [Nitrostat] 0.4 mg SUBLINGUAL Q5M PRN #100 tab PRN Reason: Chest Pain Triamcinolone 0.1% Cream [Kenalog 0.1% Cream] 1 applic TOPICAL BID PRN PRN Reason: Rash Cetirizine HCl [Zyrtec] 10 mg PO DAILY Metoprolol Tartrate 25 mg PO DAILY Cholecalciferol (Vitamin D3) [Vitamin D3 (3000 Iu)] 75 mcg PO DAILY buPROPion XL [Wellbutrin XL] 300 mg PO DAILY Mometasone Furoate [Asmanex 220 MCG] 1 puff INHALATION RT-DAILY Nasal [place] (Unknown) 1 spray EA NOSTRIL DAILY Zinc Gluconate [Zinc] 50 mg PO DAILY Ascorbic Acid [Vitamin C] 1,000 mg PO DAILY Discontinued Isosorbide Mononitrate [Isosorbide Mononitrate ER] 30 mg PO DAILY Discharge Medication List Montelukast Sodium [Singulair] 10 mg PO DAILY 03/17/16 [History] Aspirin 81 mg PO DAILY #30 chewable 01/26/19 [Rx] Atorvastatin [Lipitor] 80 mg PO DAILY #90 tab 01/26/19 [Rx] Nitroglycerin Sl Tabs [Nitrostat] 0.4 mg SUBLINGUAL Q5M PRN #100 tab 01/26/19 [Rx] Triamcinolone 0.1% Cream [Kenalog 0.1% Cream] 1 applic TOPICAL BID PRN 11/10/20 [History] Ascorbic Acid [Vitamin C] 1,000 mg PO DAILY 10/20/22 [History] Cetirizine HCl [Zyrtec] 10 mg PO DAILY 10/20/22 [History] Cholecalciferol (Vitamin D3) [Vitamin D3 (3000 Iu)] 75 mcg PO DAILY 10/20/22 [History] Metoprolol Tartrate 25 mg PO DAILY 10/20/22 [History] Mometasone Furoate [Asmanex 220 MCG] 1 puff INHALATION RT-DAILY 10/20/22 [History] Nasal [place] (Unknown) 1 spray EA NOSTRIL DAILY 10/20/22 [History] Zinc Gluconate [Zinc] 50 mg PO DAILY 10/20/22 [History] buPROPion XL [Wellbutrin XL] 300 mg PO DAILY 10/20/22 [History] Isosorbide Mononitrate ER [Imdur] 30 mg PO BID-W/MEALS #60 tab 10/22/22 [Rx] Follow up Appointment(s)/Referral(s): Troy Lebron MD [Primary Care Provider] - 10/28/22 9:00 am Christofer Plata DO [STAFF PHYSICIAN] - 10/28/22 10:30 am Patient Instructions/Handouts: *[facility] - After Heart Catheterization - Freelance Director Instructions, Angina (DC), Bradycardia (DC) Activity/Diet/Wound Care/Special Instructions: activity limited until follow up follow up with pcp on discharge follow up with cardiology in one week take medications as prescribed follow heart healthy diet Discharge Disposition: TRANSFER TO SNF/ECF
== END 2022-10-22 12:44 | DRG 287 ==
LOC: EC 09:12 → 3SCARD 11:18
PROVIDERS: ADMIT Internal Medicine; ATTEND Internal Medicine
PROC: 4A023N7 Measurement of Cardiac Sampling and Pressure, Left Heart, Percutaneous Approach (ICD-10-PCS; principal; 2022-10-21 07:30)
PROC: B41F1ZZ Fluoroscopy of Right Lower Extremity Arteries using Low Osmolar Contrast (ICD-10-PCS; principal; 2022-10-21 07:30)
PROC: B2111ZZ Fluoroscopy of Multiple Coronary Arteries using Low Osmolar Contrast (ICD-10-PCS; principal; 2022-10-21 07:30)
DX: I25.110 Atherosclerotic heart disease of native coronary artery with unstable angina pectoris (principal); R00.1 Bradycardia, unspecified; I10 Essential (primary) hypertension; I08.3 Combined rheumatic disorders of mitral, aortic and tricuspid valves; E78.5 Hyperlipidemia, unspecified; M19.042 Primary osteoarthritis, left hand; M19.041 Primary osteoarthritis, right hand; J30.2 Other seasonal allergic rhinitis; J45.909 Unspecified asthma, uncomplicated; Z88.8 Allergy status to other drugs, medicaments and biological substances; G47.33 Obstructive sleep apnea (adult) (pediatric); F32.A Depression, unspecified; I25.2 Old myocardial infarction; Z87.01 Personal history of pneumonia (recurrent); Z79.82 Long term (current) use of aspirin; Z79.899 Other long term (current) drug therapy; Z85.46 Personal history of malignant neoplasm of prostate; Z85.828 Personal history of other malignant neoplasm of skin; Z95.5 Presence of coronary angioplasty implant and graft
CPT/HCPCS: 36415; 71046; 80053; 80061; 83735; 84484; 85025; 85379; 85610; 85730; 93005; 93306; 93458; 96365; 96366; 99285

== ENCOUNTER → 2023-03-03 | Outpatient (CLI) | payer MEDICARE ==
--- NOTE | 2023-03-03 16:16 | US ---
EXAMINATION TYPE: US carotid duplex BILAT DATE OF EXAM: 03/03/2023 COMPARISON: US 2011 CLINICAL INDICATION: Male, 77 years old with history of I65.29 carotid bruit; TECHNIQUE: Carotid duplex ultrasound examination. Indirect Doppler criteria was utilized. FINDINGS: EXAM MEASUREMENTS: RIGHT: Peak Systolic Velocity (PSV) cm/sec ----- Right CCA: 70.5 ----- Right ICA: 94.3 ----- Right ECA: 109.3 ICA/CCA ratio: 1.3 RIGHT: End Diastole cm/sec ----- Right CCA: 15.9 ----- Right ICA: 27.8 ----- Right ECA: 13.5 LEFT: Peak Systolic Velocity (PSV) cm/sec ----- Left CCA: 80.9 ----- Left ICA: 63.9 ----- Left ECA: 91.0 ICA/CCA ratio: 0.8 LEFT: End Diastole cm/sec ----- Left CCA: 19.3 ----- Left ICA: 24.3 ----- Left ECA: 14.6 VERTEBRALS (direction of flow): Right Vertebral: Antegrade Left Vertebral: Antegrade Rhythm: Normal No significant stenosis. Mild atherosclerotic plaque within the left carotid bulb. IMPRESSION: No ultrasound evidence for hemodynamically significant stenosis of the visualized bilateral carotid a rterial systems. Criteria for Assigning % of Stenosis / Diameter reduction (Estimation based on the indirect measurements of the internal carotid artery velocities (ICA PSV). 1. Normal (no stenosis)=ICA PSV < 125 cm/s: ratio < 2.0: ICA EDV<40 cm/s. 2. Less than 50% stenosis=ICA PSV < 125 cm/s: ratio < 2.0: ICA EDV<40 cm/s. 3. 50 to 69% stenosis=ICA PSV of 125 to 230 cm/s: ration 2.0 ? 4.0: ICA EDV 40-100 cm/s. 4. Greater than 70% stenosis to near occlusion= ICA PSV > 230 cm/s: ratio > 4.0: ICA EDV > 100 cm/s. 5. Near occlusion= ICA PSV velocities may be low or undetectable: variable ratio and ICA EDV. 6. Total occlusion=unable to detect flow.
== END | disposition home or self-care (01) ==
LOC: RADUSWWP 15:32
PROVIDERS: ATTEND Internal Medicine
DX: I65.23 Occlusion and stenosis of bilateral carotid arteries (principal)
CPT/HCPCS: 93880